=== PATIENT | male | born 1955 | race Caucasian/White ===

== ENCOUNTER 2016-12-27 22:09 | Emergency (ER) | payer OTHER | END 2016-12-28 00:59 | disposition home or self-care (01) | DX: I48.91 Unspecified atrial fibrillation (principal); I45.6 Pre-excitation syndrome; Z98.61 Coronary angioplasty status; I10 Essential (primary) hypertension; E03.9 Hypothyroidism, unspecified ==

== ENCOUNTER 2020-10-18 08:08 | Day surgery (SDC) | payer MEDICARE, OTHER ==
[2020-10-18] MEDS ORDERED: LACTATED RINGERS 1,000 ML IV ONE ×2 (08:47→10:40)
[2020-10-18] MEDS ORDERED: fentaNYL 250 MCG/5 ML VIAL ONE (09:14)
[2020-10-18] MEDS ORDERED: MIDAZOLAM 2 MG/2 ML VIAL ONE ×2 (09:14→09:29)
[2020-10-18] MEDS ORDERED: LACTATED RINGERS 600 ML IV ONE (09:47)
[2020-10-18 10:39] VITALS: BP 120/70
== END 2020-10-18 08:09 | disposition home or self-care (01) ==
LOC: SDS 08:08
PROVIDERS: ATTEND Surgery
PROC: 0DBL8ZX Excision of Transverse Colon, Via Natural or Artificial Opening Endoscopic, Diagnostic (ICD-10-PCS; principal; 2020-10-18 09:15)
DX: Z12.11 Encounter for screening for malignant neoplasm of colon (principal); K57.30 Diverticulosis of large intestine without perforation or abscess without bleeding; K63.5 Polyp of colon; I10 Essential (primary) hypertension; I25.10 Atherosclerotic heart disease of native coronary artery without angina pectoris; Z95.1 Presence of aortocoronary bypass graft; E66.9 Obesity, unspecified; Z68.34 Body mass index [BMI] 34.0-34.9, adult
CPT/HCPCS: 45380; J3010; J7120

== ENCOUNTER 2021-04-08 17:56 | Outpatient (CLI) | payer MEDICARE, OTHER | END 2021-04-08 17:57 | disposition critical access hospital (66) | LOC: EMS 17:56 | DX: R10.9 Unspecified abdominal pain (principal) | CPT/HCPCS: A0425; A0427 ==

== ENCOUNTER 2021-04-08 18:15 | Emergency (ER) | payer MEDICARE, OTHER ==
--- NOTE | 2021-04-08 18:55 | ED Physician Documentation ---
PD HPI ABD PAIN - Stated complaint Stated Complaint: ABD PAIN - Chief complaint Chief Complaint: Cardiac - History obtained from History obtained from: Patient - History of Present Illness Timing - onset: How many hours ago (2) Timing - duration: Hours (2) Timing - details: Abrupt onset Pain level max: 10 Pain level now: 5 Quality: Aching, Sharp, Stabbing, Pain Radiation: No: Chest, , Lower back, Left flank, Left shoulder, Right flank, Right shoulder, Upper back Improved by: Meds Worsened by: Moving, Palpation Associated symptoms: No: Fever, Nausea, Vomiting, Hematemesis, Diarrhea, Constipation, Melena, Hematochezia, Dysuria, Hematuria, Chest pain, Dizzy, Near syncope / syncope, Loss of appetite, Weight loss, Testicular pain Similar symptoms before: Has not had sx before Recently seen: Not recently seen - Additional information Additional information: 65-year-old male presents to the emergency department with abdominal pain. He states that it started around 2 hours ago. Abrupt onset while he was sitting in a chair at home. He states that it is epigastric. Took Joselin-Whiting without relief. Feels better after fentanyl with EMS. Describes it as a sharp stabbing pain in the epigastrium. Nonradiating. Worse with movement and palpation. Better with fentanyl. Patient states he usually has 1-2 alcoholic drinks a week. Had 8-10 drinks this weekend over 06 April. Review of Systems Ten Systems: 10 systems reviewed and negative Constitutional: denies: Fever, Chills Ears: denies: Ear pain Nose: denies: Rhinorrhea / runny nose, Congestion Throat: denies: Sore throat Cardiac: denies: Chest pain / pressure Respiratory: denies: Cough GI: denies: Hematemesis, Bloody / black stool : denies: Dysuria, Frequency, Hesitancy Skin: denies: Rash Musculoskeletal: denies: Neck pain, Back pain Neurologic: denies: Headache PD PAST MEDICAL HISTORY - Past Medical History Cardiovascular: Hypertension, High cholesterol, Coronary artery disease Respiratory: None Endocrine/Autoimmune: HyPOthyroidism GI: GERD : None, Nocturia HEENT: None Psych: None, Schizophrenia Musculoskeletal: Osteoarthritis Derm: None - Past Surgical History Past Surgical History: Yes Cardiovascular: CABG HEENT: Tonsil/Adenoidectomy - Present Medications Home Medications: Ambulatory Orders Medication Instructions Recorded Confirmed Levothyroxine Sodium 1 tab PO DAILY 12/27/16 10/17/20 Metoprolol Tartrate 1 tab PO BID 12/27/16 10/18/20 Simvastatin 1 tab PO DAILY 12/27/16 10/17/20 Doxazosin [Cardura] 2 mg PO DAILY 10/17/20 10/17/20 Losartan [Cozaar] 25 mg PO BID 10/17/20 10/17/20 Omeprazole 20 mg PO DAILY 10/17/20 10/17/20 Zolpidem [Ambien] 12.5 mg PO HS 10/17/20 10/18/20 Aspirin [Aspirin EC] 81 mg PO DAILY 10/18/20 10/18/20 HYDROcod/ACETAM 5/325 [[place] 5/325] 1 - 2 ea PO Q6H PRN #14 tablet 04/08/21 Omeprazole [PriLOSEC] 20 mg PO BID #60 04/08/21 Sucralfate [Carafate] 1 gm PO ACHS #60 tablet 04/08/21 - Allergies Allergies/Adverse Reactions: Allergies Allergy/AdvReac Type Severity Reaction Status Date / Time No Known Drug Allergies Allergy Verified 04/08/21 18:47 - Social History Does the pt smoke?: No Smoking Status: Never smoker Does the pt drink ETOH?: Yes Does the pt have substance abuse?: No - Immunizations Immunizations are current?: No - POLST Patient has POLST: No PD ED PE NORMAL - Vitals Vital signs reviewed: Yes - General General: Alert and oriented X 3, No acute distress, Well developed/nourished - HEENT HEENT: PERRL, Moist mucous membranes - Neck Neck: Supple, no meningeal sign - Cardiac Cardiac: RRR - Respiratory Respiratory: No respiratory distress, Clear bilaterally - Abdomen Abdomen: Soft, Non tender, Non distended, Other (Tender palpation epigastric without peritoneal signs.) - Derm Derm: Warm and dry - Extremities Extremities: No edema, No calf tenderness / cord - Neuro Neuro: Alert and oriented X 3 - Psych Psych: Normal mood, Normal affect Results - Vitals Vitals: Vital Signs - 24 hr 04/08/21 04/08/21 04/08/21 18:41 20:19 22:12 Temperature 36.6 C Heart Rate 66 58 L 63 Respiratory 14 14 16 Rate Blood Pressure 174/89 H 179/93 H 158/85 H O2 Saturation 98 98 98 Oxygen O2 Source Room air - Labs Labs: Laboratory Tests 04/08/21 04/08/21 04/08/21 18:52 18:52 19:41 WBC 7.7 RBC 5.31 Hgb 14.6 Hct 44.9 MCV 84.6 MCH 27.5 MCHC 32.5 RDW 13.1 Plt Count 216 MPV 10.5 Neut # (Auto) 5.2 Lymph # (Auto) 1.5 [place] # (Auto) 0.8 Eos # (Auto) 0.2 Baso # (Auto) 0.0 Absolute Nucleated RBC 0.00 Nucleated RBC % 0.0 Sodium 136 Potassium 3.6 Chloride 105 Carbon Dioxide 23 Anion Gap 8.0 BUN 22 H Creatinine 1.0 Estimated GFR (MDRD) 75 L Glucose 131 H Calcium 8.8 Total Bilirubin 1.6 H AST 68 H ALT 52 Alkaline Phosphatase 73 Total Protein 6.4 L Albumin 3.9 Globulin 2.5 Albumin/Globulin Ratio 1.6 Lipase 20 L Urine Color YELLOW Urine Clarity CLEAR Urine pH 7.5 Ur Specific [place] 1.020 Urine Protein NEGATIVE Urine Glucose (UA) NEGATIVE Urine Ketones TRACE Urine Occult Blood NEGATIVE Urine Nitrite NEGATIVE Urine Bilirubin NEGATIVE Urine Urobilinogen 1 (NORMAL) Ur Leukocyte Esterase NEGATIVE Ur Microscopic Review NOT INDICATED Urine Culture Comments NOT INDICATED - Rads (name of study) CT abd/pelvis Radiology: Prelim report reviewed, EMP read contemporaneously, See rad report PD MEDICAL DECISION MAKING - ED course Complexity details: reviewed results, re-evaluated patient, considered differential, d/w patient ED course: Patient is a 65-year-old male With epigastric abdominal pain. Appears to have duodenitis and gastritis on CT scan. Patient is well-appearing, nontoxic. Afebrile. Tolerating p.o. without difficulty. No evidence of pancreatitis. No evidence of gallbladder disease. Pain well controlled in the emergency department. Will restart his omeprazole to twice a day. We will add Carafate as well. Counseled regarding dietary changes. Patient counseled regarding signs and symptoms for which I believe and urgent re-evaluation would be necessary. Patient with good understanding of and agreement to plan and is comfortable going home at this time This document was made in part using voice recognition software. While efforts are made to proofread this document, sound alike and grammatical errors may occur. IMPRESSION: 1. Suggestion of mild circumferential thickening of the distal pylorus and proximal duodenum. No substantial inflammatory stranding. Findings may be related to incomplete distention. However, gastritis versus duodenitis may have a similar appearance. No evidence for perforation. 2. Colonic diverticulosis without acute diverticulitis. 3. Incompletely characterized 1.3 cm posterior left renal cortical hypodensity. This likely represents a renal cyst. Consider further evaluation with outpatient ultrasound to further characterize. 4. Atherosclerosis. Departure - Departure Disposition: Home, Self Care Clinical Impression: Gastritis and duodenitis Condition: Good Instructions: ED Gastritis Follow-Up: Janie Butts MD [Primary Care Provider] - Within 1 week Prescriptions: Sucralfate [Carafate] 1 gm PO ACHS #60 tablet HYDROcod/ACETAM 5/325 [[place] 5/325] 1 - 2 ea PO Q6H PRN #14 tablet PRN Reason: Pain Omeprazole [PriLOSEC] 20 mg PO BID #60 Comments: Follow-up with your doctor for further care. Return if you worsen. We will start you on twice a day omeprazole. Avoid fried foods, fatty foods, spicy foods, caffeine, alcohol. I am prescribing a short course of narcotic pain medication for you. These are potentially dangerous and addictive medications that should be used carefully. These medications may constipate you. Take an uytk-bei-[id number] stool softener (docusate) twice daily with plenty of water while taking these medications. If you go 24 hours without a bowel movement, take [id number] miralax, per package instructions. Do not drink or drive while taking these medications. If you received narcotic or sedating medications while in the emergency department, do not drive for 24 hours. Store this medication in a safe, secure place and out of reach of children. It is a violation of federal law to give or sell this medication to another person or to use in a manner other than prescribed. The ED will not refill narcotic prescriptions, including prescriptions lost or stolen. To dispose of unwanted medications: 1. [facility] at [address] in [place] has a medication drop box. They accept prescription medications (in pill form) Wednesday through Wednesday 9:00 a.m. to 5:00 p.m. 2. [facility] accepts prescription medications (in pill form only) for disposal year round. Call for more information. 3. Contact the [facility] for the next [facility] sponsored prescription drug collection event. , [phone], or [phone]; Discharge Date/Time: 04/08/21 22:57
[2021-04-08 18:57] LABS: BASOPHILS % (AUTO) 0.3 %; EOSINOPHILS # (AUTO) 0.2 10^3/uL (0.0-0.7); EOSINOPHILS % (AUTO) 2.1 %; HCT - HEMATOCRIT 44.9 % (42.0-52.0); HGB - HEMOGLOBIN 14.6 g/dL (14.0-18.0); LYMPHOCYTES # (AUTO) 1.5 10^3/uL (1.5-3.5); LYMPHOCYTES % (AUTO) 19.8 %; MEAN CORPUSCULAR HEMOGLOBIN 27.5 pg (27.0-31.0); MEAN CORPUSCULAR HGB CONC 32.5 g/dL (32.0-36.0); MEAN CORPUSCULAR VOLUME 84.6 fL (80.0-94.0); MEAN PLATELET VOLUME 10.5 fL (7.4-11.4); MONOCYTES # (AUTO) 0.8 10^3/uL (0.0-1.0); NEUTROPHILS # (AUTO) 5.2 10^3/uL (1.5-6.6); NEUTROPHILS % (AUTO) 67.4 %; PLT - PLATELET COUNT 216 10^3/uL (130-450); RED BLOOD COUNT 5.31 10^6/uL (4.70-6.10); RED CELL DISTRIBUTION WIDTH 13.1 % (12.0-15.0); WHITE BLOOD COUNT 7.7 x10^3/uL (4.8-10.8)
[2021-04-08 19:10] LABS: ALBUMIN 3.9 g/dL (3.2-5.5); ALBUMIN/GLOBULIN RATIO 1.6 (1.0-2.2); BILIRUBIN,TOTAL 1.6 mg/dL (0.2-1.0); CALCIUM 8.8 mg/dL (8.5-10.3); POTASSIUM 3.6 mmol/L (3.5-5.0); TOTAL PROTEIN 6.4 g/dL (6.7-8.2)
[2021-04-08 19:48] LABS: BILIRUBIN,URINE NEGATIVE (NEGATIVE); GLUCOSE, URINE (UA) NEGATIVE (NEGATIVE); KETONES,URINE (UA) TRACE mg/dL (NEGATIVE); LEUKOCYTE ESTERASE, URINE NEGATIVE (NEGATIVE); NITRITE,URINE NEGATIVE (NEGATIVE); OCCULT BLOOD,URINE NEGATIVE (NEGATIVE); PH,URINE 7.5 PH (5.0-7.5); PROTEIN,URINE NEGATIVE (NEGATIVE); UROBILINOGEN,URINE 1 (NORMAL) E.U./dL (NORMAL)
[2021-04-08] MEDS ORDERED: fentaNYL 100 MCG/2 ML VIAL IVP STA (19:51)
[2021-04-08 19:54] LABS: CLARITY,URINE CLEAR (CLEAR)
[2021-04-08] MEDS ORDERED: IOVERSOL 320 100 ML VIAL IVP ONE ×2 (20:48→22:54)
--- NOTE | 2021-04-08 21:36 | CT Report ---
PROCEDURE: Abdomen/Pelvis W INDICATIONS: epigastric abd pain CONTRAST: IV CONTRAST: Optiray 320 ml: 100 PO CONTRAST: *NO PO CONTRAST TECHNIQUE: After the administration of weight appropriate dose of intravenous contrast, 5 mm thick sections acqu ired from the diaphragms to the symphysis. 5 mm thick coronal and sagittal reformats were acquired. For radiation dose reduction, the following was used: automated exposure control, adjustment of mA and/or kV according to patient size. COMPARISON: None. FINDINGS: Image quality: Excellent. ABDOMEN: Lung bases: Bibasilar atelectasis. A few scattered calcified pulmonary granulomas compatible with jhonathan or granulomatous disease. Suggestion of mild subpleural scarring versus sequela of chronic interstiti al lung disease. Heart size is normal. Solid organs: Liver and spleen are normal in size and enhancement. Gallbladder is mildly distended. No pericholecystic inflammatory stranding. Biliary system is non dilated. Pancreas enhances normal ly. No adrenal nodules. Kidneys demonstrate normal size and enhancement, without hydronephrosis. I ncompletely characterized 1.3 cm posterior left renal cortical hypodensity. This likely represents a cyst. Peritoneum and bowel: There is mild circumferential wall thickening of the pylorus and proximal duod enum. No significant stranding. Bowel loops demonstrate normal wall thickness and caliber. No free f luid or air. Scattered colonic diverticulosis without evidence for acute diverticulitis. Nodes and vessels: No retroperitoneal or mesenteric adenopathy by size criteria. Aorta and inferior vena cava are normal in size. Atherosclerotic calcifications are present in the abdominal aorta wit hout aneurysmal dilatation. Miscellaneous: No ventral hernias. PELVIS: Genitourinary: Bladder wall thickness is normal. Miscellaneous: No inguinal hernias or adenopathy. Bones: No suspicious bony lesions. No acute vertebral body compression fractures. IMPRESSION: 1. Suggestion of mild circumferential thickening of the distal pylorus and proximal duodenum. No subs tantial inflammatory stranding. Findings may be related to incomplete distention. However, gastritis versus duodenitis may have a similar appearance. No evidence for perforation. 2. Colonic diverticulosis without acute diverticulitis. 3. Incompletely characterized 1.3 cm posterior left renal cortical hypodensity. This likely represent s a renal cyst. Consider further evaluation with outpatient ultrasound to further characterize. 4. Atherosclerosis. Reviewed by: Benji Parson MD on 04/08/2021 9:35 PM PDT Approved by: Benji Parson MD on 04/08/2021 9:35 PM PDT Station ID: [id number]
[2021-04-08 22:12] VITALS: BP 158/85
== END 2021-04-08 22:57 | disposition home or self-care (01) ==
LOC: EDUNIT# → ED 18:15 → SUPCPDRO 18:15 → ED 22:57
DX: K29.70 Gastritis, unspecified, without bleeding (principal); K29.80 Duodenitis without bleeding; I10 Essential (primary) hypertension; Z79.82 Long term (current) use of aspirin
CPT/HCPCS: 36415; 74177; 80053; 81003; 83690; 85025; 96374; 99284; Q9967; 81001; 87086

== ENCOUNTER 2021-04-13 19:06 | Outpatient (CLI) | payer MEDICARE, OTHER | END 2021-04-13 19:07 | disposition critical access hospital (66) | LOC: EMS 19:06 | DX: R10.9 Unspecified abdominal pain (principal) | CPT/HCPCS: A0425; A0427 ==

== ENCOUNTER 2021-04-13 19:24 | Inpatient (IN) | payer MEDICARE, OTHER ==
[2021-04-13] MEDS ORDERED: HYDROmorphone 1 MG/ML CARPUJECT IVP STA ×3 (19:35→22:15)
[2021-04-13] MEDS ORDERED: LIDOCAINE VISCOUS 2% 15 ML UDC MM STA (19:36)
[2021-04-13] MEDS ORDERED: MAG HYDROX/AL HYDROX/SIMETH 30 ML UDC PO STA (19:36)
--- NOTE | 2021-04-13 19:37 | ED Physician Documentation ---
PD HPI ABD PAIN - Stated complaint Stated Complaint: ABD PAIN - Chief complaint Chief Complaint: Abd Pain - History obtained from History obtained from: Patient, EMS - Additional information Additional information: 65 yo male with hx Coronary bypass a few years ago presents with severe epigastric pain starting at 430 today. He was seen for the same pain 4 days ago. This is similar. Pain level was the same then. He really has not had pain since until today. It is worse with eating. Labs at that time, 4 days ago were notable for a bilirubin of 1.6, AST of 68, ALT normal. CBC normal. Urine normal. He had a CT of the belly with IV contrast showing distal pyloric and proximal proximal duodenum inflammation, could be gastritis versus duodenitis or incomplete distention. Atherosclerosis, diverticulosis. Pain does not radiate including the back. He is not nauseous. Decreased bowel movements but he has not been eating or drinking as much this week as usual. He has filled and taken the prescriptions he was prescribed the other day. This included sucralfate, hydrocodone, and omeprazole. Received 150 mcg of fentanyl in route with improvement but it is getting worse again. Review of Systems Ten Systems: 10 systems reviewed and negative Constitutional: reports: Reviewed and negative Nose: reports: Reviewed and negative Throat: reports: Reviewed and negative Cardiac: reports: Reviewed and negative PD PAST MEDICAL HISTORY - Past Medical History Cardiovascular: Hypertension, High cholesterol, Coronary artery disease Respiratory: None Endocrine/Autoimmune: HyPOthyroidism GI: GERD : None, Nocturia HEENT: None Psych: None, Schizophrenia Musculoskeletal: Osteoarthritis Derm: None - Past Surgical History Past Surgical History: Yes Cardiovascular: CABG HEENT: Tonsil/Adenoidectomy - Present Medications Home Medications: Ambulatory Orders Medication Instructions Recorded Confirmed Levothyroxine Sodium 1 tab PO DAILY 12/27/16 10/17/20 Metoprolol Tartrate 1 tab PO BID 12/27/16 10/18/20 Simvastatin 1 tab PO DAILY 12/27/16 10/17/20 Doxazosin [Cardura] 2 mg PO DAILY 10/17/20 10/17/20 Losartan [Cozaar] 25 mg PO BID 10/17/20 10/17/20 Omeprazole 20 mg PO DAILY 10/17/20 10/17/20 Zolpidem [Ambien] 12.5 mg PO HS 10/17/20 10/18/20 Aspirin [Aspirin EC] 81 mg PO DAILY 10/18/20 10/18/20 HYDROcod/ACETAM 5/325 [[place] 5/325] 1 - 2 ea PO Q6H PRN #14 tablet 04/08/21 Omeprazole [PriLOSEC] 20 mg PO BID #60 04/08/21 Sucralfate [Carafate] 1 gm PO ACHS #60 tablet 04/08/21 - Allergies Allergies/Adverse Reactions: Allergies Allergy/AdvReac Type Severity Reaction Status Date / Time No Known Drug Allergies Allergy Verified 04/13/21 19:33 - Social History Does the pt smoke?: No Smoking Status: Never smoker Does the pt drink ETOH?: Yes Does the pt have substance abuse?: No - Immunizations Immunizations are current?: No - POLST Patient has POLST: No PD ED PE NORMAL - Vitals Vital signs reviewed: Yes - General General: Alert and oriented X 3 - HEENT HEENT: PERRL, EOMI - Neck Neck: Supple, no meningeal sign, No bony TTP - Cardiac Cardiac: RRR, No murmur - Respiratory Respiratory: No respiratory distress, Clear bilaterally - Abdomen Abdomen: Other (He appears uncomfortable, is profoundly tender in the upper abdomen without surgical signs.) - Back Back: No CVA TTP, No spinal TTP - Derm Derm: Normal color, Warm and dry - Extremities Extremities: No edema, No calf tenderness / cord - Neuro Neuro: Alert and oriented X 3, Normal speech Results - Vitals Vitals: Vital Signs - 24 hr 04/13/21 04/13/21 04/13/21 19:22 21:00 23:00 Temperature 35.7 C L Heart Rate 65 76 73 Respiratory 21 18 14 Rate Blood Pressure 130/74 132/77 H 143/80 H O2 Saturation 99 89 L 96 04/14/21 00:53 Temperature 36.6 C Heart Rate 79 Respiratory 23 Rate Blood Pressure 146/90 H O2 Saturation 95 Oxygen O2 Source Room air - Labs Labs: Laboratory Tests 04/13/21 04/13/21 04/13/21 19:41 19:41 23:25 WBC 15.4 H RBC 5.42 Hgb 15.2 Hct 45.5 MCV 83.9 MCH 28.0 MCHC 33.4 RDW 13.2 Plt Count 220 MPV 10.5 Neut # (Auto) 12.5 H Lymph # (Auto) 1.9 [place] # (Auto) 0.8 Eos # (Auto) 0.1 Baso # (Auto) 0.0 Absolute Nucleated RBC 0.00 Nucleated RBC % 0.0 Sodium 138 Potassium 3.1 L Chloride 103 Carbon Dioxide 21 Anion Gap 14.0 H BUN 12 Creatinine 1.0 Estimated GFR (MDRD) 75 L Glucose 176 H Calcium 9.0 Total Bilirubin 3.0 H AST 195 H ALT 206 H Alkaline Phosphatase 212 H Total Protein 6.8 Albumin 4.0 Globulin 2.8 Albumin/Globulin Ratio 1.4 Lipase 20 L Urine Color YELLOW Urine Clarity CLEAR Urine pH 5.5 Ur Specific [place] <=1.005 Urine Protein NEGATIVE Urine Glucose (UA) NEGATIVE Urine Ketones 40 H Urine Occult Blood NEGATIVE Urine Nitrite NEGATIVE Urine Bilirubin MODERATE H Urine Urobilinogen >=8.0 H Ur Leukocyte Esterase NEGATIVE Ur Microscopic Review NOT INDICATED Urine Culture Comments NOT INDICATED Nasal Adenovirus (PCR) Nasal B. parapertussis DNA (PCR) Nasal Coronavir 229E PCR Nasal Coronavir HKU1 PCR Nasal Coronavir NL63 PCR Nasal Coronavir OC43 PCR Nasal Enterovir/Rhinovir PCR Nasal Influenza B PCR Nasal Influenza A PCR Nasal Parainfluen 1 PCR Nasal Parainfluen 2 PCR Nasal Parainfluen 3 PCR Nasal Parainfluen 4 PCR Nasal RSV (PCR) Nasal B.pertussis DNA PCR Nasal C.pneumoniae (PCR) Angel Human Metapneumo PCR Nasal M.pneumoniae (PCR) Nasal SARS-CoV-2 (PCR) 04/14/21 00:58 WBC RBC Hgb Hct MCV MCH MCHC RDW Plt Count MPV Neut # (Auto) Lymph # (Auto) [place] # (Auto) Eos # (Auto) Baso # (Auto) Absolute Nucleated RBC Nucleated RBC % Sodium Potassium Chloride Carbon Dioxide Anion Gap BUN Creatinine Estimated GFR (MDRD) Glucose Calcium Total Bilirubin AST ALT Alkaline Phosphatase Total Protein Albumin Globulin Albumin/Globulin Ratio Lipase Urine Color Urine Clarity Urine pH Ur Specific [place] Urine Protein Urine Glucose (UA) Urine Ketones Urine Occult Blood Urine Nitrite Urine Bilirubin Urine Urobilinogen Ur Leukocyte Esterase Ur Microscopic Review Urine Culture Comments Nasal Adenovirus (PCR) NOT DETECTED Nasal B. parapertussis DNA (PCR) NOT DETECTED Nasal Coronavir 229E PCR NOT DETECTED Nasal Coronavir HKU1 PCR NOT DETECTED Nasal Coronavir NL63 PCR NOT DETECTED Nasal Coronavir OC43 PCR NOT DETECTED Nasal Enterovir/Rhinovir PCR DETECTED A Nasal Influenza B PCR NOT DETECTED Nasal Influenza A PCR NOT DETECTED Nasal Parainfluen 1 PCR NOT DETECTED Nasal Parainfluen 2 PCR NOT DETECTED Nasal Parainfluen 3 PCR NOT DETECTED Nasal Parainfluen 4 PCR NOT DETECTED Nasal RSV (PCR) NOT DETECTED Nasal B.pertussis DNA PCR NOT DETECTED Nasal C.pneumoniae (PCR) NOT DETECTED Angel Human Metapneumo PCR NOT DETECTED Nasal M.pneumoniae (PCR) NOT DETECTED Nasal SARS-CoV-2 (PCR) NOT DETECTED PD MEDICAL DECISION MAKING - ED course ED course: 65-year-old gentleman "bounces back," with severe epigastric pain. Previous studies reviewed.. Prior CT imaging suggestive of duodenal inflammation and sent home on a PPI and sucralfate. He was pain-free for a few days but now sudden onset pain again starting at 430 today. Tender in the upper abdomen. Labs reviewed, his white count has gone from 7.7-15.4. His bilirubin has gone from 1.6-3, AST from 68-1 95, ALT from 52-2 06, alkaline phosphatase from 73- 212. These changes are suggestive of a progressive biliary obstruction. CT tonight shows: 1. Distended stomach. There is mild gastric antral thickening. This findings suggest gastric outlet obstruction. Recommend clinical correlation. If clinically indicated, EGD may be helpful. 2. Diverticulosis without acute diverticulitis. 3. A 1.5 cm low-density cortical nodule in the left kidney. Statistically, it is most likely a cyst. Ultrasound be helpful for further characterization. 4. Bilateral subpleural septal thickening and pulmonary fibrosis in visualized lower lobes. Care to Dr. Coppola at shift change, I have ordered an ultrasound to better evaluate the bile ducts. Departure - Departure Disposition: [address] [facility] DC/Xfer Clinical Impression: Cholangitis due to bile duct calculus with obstruction Condition: Serious Discharge Date/Time: 04/14/21 03:55
[2021-04-13] MEDS ORDERED: IOVERSOL 320 100 ML VIAL IVP ONE ×2 (19:43→21:42)
[2021-04-13] MEDS ORDERED: IOVERSOL 320 50 ML VIAL ONE (19:43)
[2021-04-13 19:48] LABS: BASOPHILS % (AUTO) 0.2 %; EOSINOPHILS # (AUTO) 0.1 10^3/uL (0.0-0.7); EOSINOPHILS % (AUTO) 0.8 %; HCT - HEMATOCRIT 45.5 % (42.0-52.0); HGB - HEMOGLOBIN 15.2 g/dL (14.0-18.0); LYMPHOCYTES # (AUTO) 1.9 10^3/uL (1.5-3.5); LYMPHOCYTES % (AUTO) 12.3 %; MEAN CORPUSCULAR HGB CONC 33.4 g/dL (32.0-36.0); MEAN CORPUSCULAR VOLUME 83.9 fL (80.0-94.0); MEAN PLATELET VOLUME 10.5 fL (7.4-11.4); MONOCYTES # (AUTO) 0.8 10^3/uL (0.0-1.0); MONOCYTES % (AUTO) 5.4 %; NEUTROPHILS # (AUTO) 12.5 10^3/uL (1.5-6.6); PLT - PLATELET COUNT 220 10^3/uL (130-450); RED BLOOD COUNT 5.42 10^6/uL (4.70-6.10); RED CELL DISTRIBUTION WIDTH 13.2 % (12.0-15.0); WHITE BLOOD COUNT 15.4 x10^3/uL (4.8-10.8)
[2021-04-13 20:01] LABS: ALBUMIN/GLOBULIN RATIO 1.4 (1.0-2.2); POTASSIUM 3.1 mmol/L (3.5-5.0); TOTAL PROTEIN 6.8 g/dL (6.7-8.2)
[2021-04-13] MEDS ORDERED: IOPAMIDOL-300 50 ML VIAL PO ONE (21:43)
--- NOTE | 2021-04-13 22:13 | CT Report ---
PROCEDURE: Abdomen/Pelvis W INDICATIONS: abd pain, iv and po CONTRAST: IV CONTRAST: Optiray 320 ml: 100 PO CONTRAST: Optiray 320 ml50 TECHNIQUE: After the administration of intravenous contrast, 5 mm thick sections acquired from the diaphragms to the symphysis. 5 mm thick coronal and sagittal reformats were acquired. For radiation dose reducti on, the following was used: automated exposure control, adjustment of mA and/or kV according to david ent size. COMPARISON: CT abdomen and pelvis with contrast, 04/08/2021. FINDINGS: Image quality: Excellent. ABDOMEN: Lung bases: Bilateral subpleural septal thickening and pulmonary fibrosis in visualized lower lobes. Heart size is normal. Moderate coronary artery calcification. Solid organs: Liver and spleen are normal in size and enhancement. Gallbladder is mildly distended. No gallstones. Biliary system is non dilated. Pancreas enhances normally. No adrenal nodules. Ki dneys demonstrate normal size and enhancement, without hydronephrosis. There is a 1.5 cm cortical no dule in the posterior cortex of the left kidney. Peritoneum and bowel: Stomach is distended. There is mild gastric antral thickening. Bowel loops dem onstrate normal wall thickness and caliber. There are scattered colonic diverticula. No CT findings to suggest acute diverticulitis. No free fluid or air. Nodes and vessels: No retroperitoneal or mesenteric adenopathy by size criteria. Aorta and inferior vena cava are normal in size. Miscellaneous: No ventral hernias. PELVIS: Genitourinary: Bladder wall thickness is normal. Miscellaneous: No inguinal hernias or adenopathy. Bones: No suspicious bony lesions. No vertebral body compression fractures. Degenerative changes a re present in the lower lumbar spine. IMPRESSION: 1. Distended stomach. There is mild gastric antral thickening. This findings suggest gastric outlet o bstruction. Recommend clinical correlation. If clinically indicated, EGD may be helpful. 2. Diverticulosis without acute diverticulitis. 3. A 1.5 cm low-density cortical nodule in the left kidney. Statistically, it is most likely a cyst. Ultrasound be helpful for further characterization. 4. Bilateral subpleural septal thickening and pulmonary fibrosis in visualized lower lobes. Reviewed by: Jose David Stafford MD on 04/13/2021 10:12 PM PDT Approved by: Jose David Stafford MD on 04/13/2021 10:12 PM PDT Station ID: [id number]
--- NOTE | 2021-04-13 23:34 | Ultrasound Report ---
PROCEDURE: Abdomen Limited INDICATIONS: elev liver enzymes, ?choledocholithiasis TECHNIQUE: Real-time focused scanning was performed of the abdomen, with image documentation. COMPARISON: Abdomen pelvis CT performed earlier in the day, 04/13/2021. FINDINGS: The liver demonstrates prominent size. The liver demonstrates moderately increased echoge nicity, which limits ultrasound sensitivity for detection of masses. The gallbladder is somewhat distended. The gallbladder wall is minimally thickened at 4 mm. No stones can be seen. No specific pericholecystic fluid. The sonographic Swain's is negative. The common bile duct is mildly dilated at 13 mm. The visualized right kidney is unremarkable. The pancreas is not well seen. This study is limited by body habitus and bowel gas. IMPRESSION: Biliary ductal dilatation is seen, measuring 13 mm. If clinically appropriate, please consider a dedicated MRCP for further evaluation (assuming that the re is no contraindication). Prominent gallbladder with minimal gallbladder wall thickening. No additional sonographic signs of ch olecystitis are seen. Increased liver echogenicity is seen. This is nonspecific, yet it is most commonly attributed to fatt y infiltration. Reviewed by: Vega Kiser MD on 04/13/2021 10:33 PM KALIA Approved by: Vega Kiser MD on 04/13/2021 10:33 PM KALIA Station ID: [id number]
[2021-04-13 23:38] LABS: GLUCOSE, URINE (UA) NEGATIVE (NEGATIVE); KETONES,URINE (UA) 40 mg/dL (NEGATIVE); LEUKOCYTE ESTERASE, URINE NEGATIVE (NEGATIVE); NITRITE,URINE NEGATIVE (NEGATIVE); OCCULT BLOOD,URINE NEGATIVE (NEGATIVE); PH,URINE 5.5 PH (5.0-7.5); PROTEIN,URINE NEGATIVE (NEGATIVE); UROBILINOGEN,URINE >=8.0 E.U./dL (NORMAL)
[2021-04-13 23:43] LABS: BILIRUBIN,URINE MODERATE (NEGATIVE); CLARITY,URINE CLEAR (CLEAR); ICTOTEST,URINE POSITIVE
[2021-04-14] MEDS ORDERED: HYDROmorphone 1 MG/ML CARPUJECT IVP STA ×2 (00:19→02:47)
--- NOTE | 2021-04-14 00:37 | ED Physician Documentation ---
ED Addendum - Addendum Addendum: 04/14/21 00:33 65-year-old male with a history of coronary artery disease has developed acute epigastric pain over the last 5 days and he is an exacerbation of the pain today and appears to have a common duct stone. The patient was signed out to me by Dr. Mares with the ultrasound pending. The ultrasound demonstrates evidence of obstruction and the specific stone was not visible secondary to gas. We reached out to [facility] where the patient has been referred for endoscopy and they do not have a physician addiction specialist the does ERCP tonight and they do not have beds. We called our friends at [facility] and they do have capability of ERCP but they do not have a bed. We have been placed on their waiting list. I talked to our surgeon here Dr. Aldridge who agrees the patient needs to be in the hospital and needs to have an MRCP and will likely need transfer for ERCP. He has agreed to admit the patient here for MRCP in the am and treatment of cholangitis. 04/14/21 00:52 Results of U/S: Impression: Biliary ductal dilation is seen, measuring 13 mm. If clinically appropriate, please consider dedicated MRCP for further evaluation (assuming that there is no contraindication). Prominent gallbladder with minimal gallbladder wall thickening. No additional sonographic sign of cholecystitis is seen. Increased liver echogenicity is seen. This is nonspecific, yet is most commonly attributed to fatty infiltration.
[2021-04-14 01:58] LABS: B. PARAPERTUSSIS- RESP PCR PAN NOT DETECTED; B. PERTUSSIS- RESP PCR PANEL NOT DETECTED; C. PNEUMONIAE- RESP PCR PANEL NOT DETECTED; CORONAVIRUS 229E-RESP PCR NOT DETECTED; CORONAVIRUS HKU1-RESP PCR NOT DETECTED; CORONAVIRUS NL63-RESP PCR NOT DETECTED; CORONAVIRUS OC43-RESP PCR NOT DETECTED; HUMAN METAPNEUMOVIRUS NOT DETECTED; INFLUENZA A- RESP PCR PANEL NOT DETECTED; INFLUENZA B - RESP PCR PANEL NOT DETECTED; M. PNEUMONIAE- RESP PCR PANEL NOT DETECTED; PARAINFLUENZA VIRUS 1 NOT DETECTED; PARAINFLUENZA VIRUS 2 NOT DETECTED; PARAINFLUENZA VIRUS 3 NOT DETECTED; PARAINFLUENZA VIRUS 4 NOT DETECTED; RHINOVIRUS/ENTEROVIRUS DETECTED; RSV- RESP PCR PANEL NOT DETECTED; SARS-CoV-2 -RESP PCR PANEL NOT DETECTED
[2021-04-14] MEDS ORDERED: ACETAMINOPHEN 1,000 MG/100 ML 100 ML IV PRN (02:26)
[2021-04-14] MEDS ORDERED: ONDANSETRON 4 MG/2 ML VIAL IVP PRN (02:26)
[2021-04-14 02:47] LABS: BASOPHILS % (AUTO) 0.2 %; HCT - HEMATOCRIT 44.2 % (42.0-52.0); HGB - HEMOGLOBIN 14.8 g/dL (14.0-18.0); LYMPHOCYTES % (AUTO) 7.9 %; MEAN CORPUSCULAR HEMOGLOBIN 27.7 pg (27.0-31.0); MEAN CORPUSCULAR HGB CONC 33.5 g/dL (32.0-36.0); MEAN CORPUSCULAR VOLUME 82.6 fL (80.0-94.0); MEAN PLATELET VOLUME 10.5 fL (7.4-11.4); MONOCYTES # (AUTO) 1.1 10^3/uL (0.0-1.0); MONOCYTES % (AUTO) 8.7 %; NEUTROPHILS # (AUTO) 10.5 10^3/uL (1.5-6.6); PLT - PLATELET COUNT 211 10^3/uL (130-450); RED BLOOD COUNT 5.35 10^6/uL (4.70-6.10); RED CELL DISTRIBUTION WIDTH 13.1 % (12.0-15.0); WHITE BLOOD COUNT 12.6 x10^3/uL (4.8-10.8)
[2021-04-14 02:59] LABS: ALBUMIN 3.8 g/dL (3.2-5.5); ALBUMIN/GLOBULIN RATIO 1.3 (1.0-2.2); BILIRUBIN,TOTAL 4.6 mg/dL (0.2-1.0); CALCIUM 8.8 mg/dL (8.5-10.3); CREATININE 0.9 mg/dL (0.6-1.2); POTASSIUM 3.3 mmol/L (3.5-5.0); TOTAL PROTEIN 6.8 g/dL (6.7-8.2)
[2021-04-14] MEDS: HYDROmorphone 0.5 MG/0.5 ML SYRINGE IVP PRN ×7 (04:33→20:05)
[2021-04-14] MEDS: SODIUM CHLORIDE FLUSH 0.9% 10 ML SYRINGE IVP PRN (04:34)
[2021-04-14] MEDS: PIPERACILLIN/TAZOBACTAM 3.375 GM in SODIUM CHLORIDE 0.9% MINIBAG 100 ML IV SCH ×4 (04:34→22:29)
[2021-04-14] MEDS: D5NS W/20 MEQ KCL 1,000 ML IV SCH ×2 (04:34→17:43)
[2021-04-14] MEDS: PANTOPRAZOLE 40 MG VIAL IVP SCH (07:41)
[2021-04-14] MEDS: METOCLOPRAMIDE 10 MG/2 ML VIAL IVP SCH ×3 (07:41→19:48)
[2021-04-14] MEDS: methocarbamoL 500 MG TABLET PO SCH ×3 (07:41→19:48)
[2021-04-14] MEDS: LEVOTHYROXINE 100 MCG TABLET PO SCH (07:41)
[2021-04-14] MEDS ORDERED: GADOBUTROL 15 MMOL/15 ML VIAL ONE (08:41)
[2021-04-14] MEDS: LOSARTAN 50 MG TABLET PO SCH ×2 (08:42→22:29)
[2021-04-14] MEDS: DOXAZOSIN 1 MG TABLET PO SCH (08:43)
[2021-04-14] MEDS: ATORVASTATIN 10 MG TABLET PO SCH (08:43)
[2021-04-14] MEDS: METOPROLOL TARTRATE 25 MG TABLET PO SCH ×2 (08:43→22:29)
[2021-04-14] MEDS: SODIUM CHLORIDE FLUSH 0.9% 10 ML SYRINGE IVP SCH ×2 (08:44→17:43)
[2021-04-14] MEDS ORDERED: PANTOPRAZOLE 40 MG TABLET PO SCH (09:00)
[2021-04-14] MEDS ORDERED: ENOXAPARIN 40 MG/0.4 ML SYRINGE SUBQ SCH (09:00)
[2021-04-14] MEDS ORDERED: NON FORMULARY MED (Omeprazole [Prilosec] 20 MG Capsule) PO SCH (09:00)
--- NOTE | 2021-04-14 11:33 | PHARMACY PROGRESS NOTE ---
- Best Possible Medication History Admit Date and Time: 04/14/21 0226 Processed by: Pharmacy Medication History completed: Yes Patient Interview: Pt unable to participate Secondary Source(s): Pharmacy records, Insurance records As the person ultimately responsible for medication therapy, providers are able to order a medication from an existing home medication list in [facility] via the "Reconcile Routine" prior to Confirmation of that medication by patient support representative. Such practice is discouraged except when the physician, in their clinical judgment, deems that a medical need exists for a medication without regard to previous use.
--- NOTE | 2021-04-14 13:25 | MRI Report ---
PROCEDURE: MRCP W/WO INDICATIONS: choledocholithiasis CONTRAST: IV CONTRAST: Gadavist ml: 11 TECHNIQUE: Coronal ultra fast SE through the abdomen, axial 2-D spoiled GE in- and [id number], and breath-hold T2 FSE with fat saturation through the biliary system and pancreas. Oblique coronal and axial thin- slice ultra fast SE, radial thick-slab ultra fast SE centered on the extrahepatic bile ducts. Dynamic axial Marks during the administration of contrast; post-contrast coronal ultra fast GE or 2D spoiled GE with fat saturation from the hepatic dome to the iliac crests. COMPARISON: Abdominal ultrasound and CT abdomen and pelvis 04/13/2021. FINDINGS: Image quality: Good. Susceptibility artifact from median sternotomy. Pancreas and biliary system: Common hepatic duct measures 1.1 cm. Common bile duct measures 1 cm. Th e CBD tapers distally. No intraluminal filling defect is seen. Intrahepatic bile ducts are minimally prominent. Left intrahepatic bile duct measures 0.5 cm, (801/79). Gallbladder is prominent. No gallst ones seen. Pancreas is normal in morphology, without adjacent soft tissue edema. Pancreatic duct is normal in c aliber, without developmental anomalies. Other solid organs: Liver and spleen are normal in size. No suspicious focal enhancement. No adrenal nodules. Both kidneys are normal in size, without hydronephrosis. Small simple cysts in the kidneys . Nodes and vessels: No retroperitoneal or mesenteric adenopathy by size criteria. Small lower paraeso phageal lymph nodes. Aorta and inferior vena cava are normal in size. Bowel and peritoneum: Unenhanced bowel loops are normal in caliber. A few colonic diverticuli. No f ree fluid. Lung bases: No basal pleural effusions. Heart size is normal. Bones and soft tissues: No ventral hernias. Bone marrow is of normal overall signal. IMPRESSION: 1. No gallstones identified. 2. No biliary intraluminal filling defect demonstrated. 3. Mild biliary ductal dilatation. 4. The gallbladder is prominent. Reviewed by: Kenneth Childers MD on 04/14/2021 1:24 PM PDT Approved by: Kenneth Childers MD on 04/14/2021 1:24 PM PDT Station ID: [id number]
--- NOTE | 2021-04-14 15:35 | SURGERY HX AND PHYSICAL(T) ---
Surgical History & Physical - Chief Complaint/HPI Chief Complaint: Abdominal pain and jaundice History of Present Illness: 65-year-old male presenting for abdominal pain and jaundice. Patient evaluated last Wednesday and returns again yesterday with abdominal discomfort associated nausea.. No significant family history. Notable past surgical history to include none. Patient denies change in bowel function, denies bleeding per rectum, and also denies reflux associated symptoms. Patient does not use tobacco. Patient has a history of alcohol use but denies any associated abuse. Patient has appropriate exercise tolerance to 1 flight of stairs. No history of heart attack or stroke. Patient takes no systemic anticoagulation. Endoscopic history includes age-appropriate colonoscopy. - PMH/PSH/Social Hx Does the pt have a hx of MRSA?: No Neurological History: None Eyes, Ears, Nose, Throat: None Cardiovascular: Hypertension, High cholesterol, Coronary artery disease Respiratory: None Skin: None Endocrine/Autoimmune: HyPOthyroidism Gastrointestinal: GERD Urinary: None, Nocturia Musculoskeletal: Osteoarthritis Blood Disorders: None Psychiatric: None, Schizophrenia Orthopedic: Carpal Tunnel surgery Cardiothoracic: CABG Eyes Ears Nose Throat (EENT): Tonsil/Adenoidectomy Smoking Status: Never smoker Does the pt drink ETOH?: Yes Frequency: Occasional Does the pt have substance abuse?: No - Home Meds and Allergies Home Medications: Levothyroxine Sodium 150 mcg PO QDAC 12/27/16 Metoprolol Tartrate 50 mg PO BID 12/27/16 Simvastatin 20 mg PO QPM 12/27/16 Doxazosin [Cardura] 2 mg PO QPM 10/17/20 Aspirin [Aspirin EC] 81 mg PO DAILY 10/18/20 Losartan Potassium 12.5 mg PO BID 04/14/21 Zolpidem Tartrate [Ambien Cr] 12.5 mg PO QPM PRN 04/14/21 Allergies/Adverse Reactions: Allergies Allergy/AdvReac Type Severity Reaction Status Date / Time No Known Drug Allergies Allergy Verified 04/13/21 19:33 - Review of Systems Constitutional: Fatigue, Malaise Gastrointestinal: Nausea, Vomiting, Abdominal pain - Vital Signs Heart Rate: 81 Blood Pressure: 137/76 Temperature: 36.3 C Respiratory Rate: 20 O2 Saturation: 97 Weight (kg): 105.5 kg Height: 1.8 m - Physical Exam Comments/Other: General Appearance: positive: No acute distress Eyes Bilateral: positive: Normal inspection, Scleral icterus ENT: positive: ENT inspection nml Neck: positive: Nml inspection Respiratory: positive: Chest non-tender, No respiratory distress, Breath sounds nml. negative: Wheezes, Rales, Rhonchi Cardiovascular: positive: Regular rate & rhythm Abdomen: positive: Tenderness to palpation deeply in the epigastrium, Other. negative: Guarding, Rebound Extremities: positive: Non-tender, Full ROM, Nml appearance Neurologic/Psychiatric: positive: Oriented x3, CN's nml (2-12) - Patient Review Patient Review: Problems were reviewed with the patient during this visit. Medications were reviewed with the patient during this visit. Allergies were reviewed this patient during this visit. Pertinent Tests Reviewed: All pertitent test for this patient were reviewed. - Assessment & Plan Assessment and Plan: 65-year-old male who presents with signs and symptoms consistent with cholecystitis, with abdominal pain obstructive jaundice consistent with Choledocholithiasis. Although imaging is without any stones, we will proceed with MRCP to confirm. Would consider urgent referral for ERCP and return for cholecystectomy upon confirmation of diagnosis. (1) GI - IVF, bowel rest. GI ppx. Anticipate ileus. Opiate sparring analgesia. (2) SURGERY - consider cholecystectomy following ERCP; awaiting MRCP for confirmation of diagnosis. (3) Renal/Lytes - continue IVF. Renal indices within normal limits. (4) Respiratory - O2 as necessary. Continue IS. [Chest XR.] (5) Heme - Will continue with DVT ppx. [H/H stable]. (6) Cardiovascular - HD acceptable. (7) Neuro - Opiate sparring analgesia. Antispasmodics with Robaxin. Toradol. Neuropathic agents. (8) Infectious disease - continue antibiotics Impression CT abdomen pelvis: 1. Distended stomach. There is mild gastric antral thickening. This finding suggest gastric outlet obstruction. Recommend clinical correlation. If clinically indicated EGD may be helpful. 2. Diverticulosis without acute diverticulitis. 3. A 1.5 cm low-density cortical nodule in the left kidney. Statistically the most likely a cyst. Ultrasound could be helpful for further characterization. 4. Bilateral subpleural septal thickening and 5 pulmonary fibrosis is visualized lower lobes Ultrasound abdomen impression: 1. Biliary ductal dilatation seen measuring 13 mm 2. If clinically appropriate, please consider dedicated MRCP for further evaluation. 3. Prominent gallbladder with minimal gallbladder wall thickening. No additional sonographic signs of cholecystitis are seen. 4. Increased liver echogenicity. Nonspecific. Most commonly attributed to fatty infiltration.
[2021-04-14 15:47] LABS: BASOPHILS % (AUTO) 0.2 %; EOSINOPHILS # (AUTO) 0.1 10^3/uL (0.0-0.7); EOSINOPHILS % (AUTO) 0.4 %; LYMPHOCYTES # (AUTO) 0.7 10^3/uL (1.5-3.5); LYMPHOCYTES % (AUTO) 5.3 %; MEAN CORPUSCULAR HEMOGLOBIN 28.1 pg (27.0-31.0); MEAN CORPUSCULAR HGB CONC 33.3 g/dL (32.0-36.0); MEAN CORPUSCULAR VOLUME 84.2 fL (80.0-94.0); MEAN PLATELET VOLUME 10.1 fL (7.4-11.4); MONOCYTES # (AUTO) 1.4 10^3/uL (0.0-1.0); MONOCYTES % (AUTO) 10.7 %; NEUTROPHILS # (AUTO) 10.9 10^3/uL (1.5-6.6); NEUTROPHILS % (AUTO) 83.2 %; PLT - PLATELET COUNT 199 10^3/uL (130-450); RED BLOOD COUNT 4.99 10^6/uL (4.70-6.10); RED CELL DISTRIBUTION WIDTH 13.4 % (12.0-15.0); WHITE BLOOD COUNT 13.1 x10^3/uL (4.8-10.8)
[2021-04-14 16:07] LABS: ALBUMIN 3.2 g/dL (3.2-5.5); BILIRUBIN,TOTAL 5.9 mg/dL (0.2-1.0); CALCIUM 8.8 mg/dL (8.5-10.3); CREATININE 0.9 mg/dL (0.6-1.2); POTASSIUM 3.6 mmol/L (3.5-5.0); TOTAL PROTEIN 6.3 g/dL (6.7-8.2)
[2021-04-14] MEDS ORDERED: GADOBUTROL 15 MMOL/15 ML VIAL IVP ONE (17:41)
[2021-04-15] MEDS: METOCLOPRAMIDE 10 MG/2 ML VIAL IVP SCH ×5 (00:40→23:48)
[2021-04-15] MEDS: methocarbamoL 500 MG TABLET PO SCH ×5 (00:40→23:48)
[2021-04-15] MEDS: SODIUM CHLORIDE FLUSH 0.9% 10 ML SYRINGE IVP SCH ×4 (00:40→23:48)
[2021-04-15] MEDS: D5NS W/20 MEQ KCL 1,000 ML IV SCH ×4 (02:23→20:34)
[2021-04-15] MEDS: PIPERACILLIN/TAZOBACTAM 3.375 GM in SODIUM CHLORIDE 0.9% MINIBAG 100 ML IV SCH ×4 (03:20→19:19)
[2021-04-15 05:31] LABS: BASOPHILS % (AUTO) 0.2 %; EOSINOPHILS % (AUTO) 0.3 %; HCT - HEMATOCRIT 41.6 % (42.0-52.0); HGB - HEMOGLOBIN 13.7 g/dL (14.0-18.0); LYMPHOCYTES % (AUTO) 6.5 %; MEAN CORPUSCULAR HEMOGLOBIN 27.8 pg (27.0-31.0); MEAN CORPUSCULAR HGB CONC 32.9 g/dL (32.0-36.0); MEAN CORPUSCULAR VOLUME 84.4 fL (80.0-94.0); MEAN PLATELET VOLUME 10.9 fL (7.4-11.4); MONOCYTES % (AUTO) 10.9 %; NEUTROPHILS % (AUTO) 81.8 %; PLT - PLATELET COUNT 187 10^3/uL (130-450); RED BLOOD COUNT 4.93 10^6/uL (4.70-6.10); RED CELL DISTRIBUTION WIDTH 13.6 % (12.0-15.0); WHITE BLOOD COUNT 14.7 x10^3/uL (4.8-10.8)
[2021-04-15 05:38] LABS: ABNORMAL LYMPHS % (MANUAL) 0 %; BAND NEUTROPHILS % (MANUAL) 0 %
[2021-04-15 05:42] LABS: ALBUMIN 3.2 g/dL (3.2-5.5); ALBUMIN/GLOBULIN RATIO 1.2 (1.0-2.2); BILIRUBIN,TOTAL 6.1 mg/dL (0.2-1.0); CALCIUM 7.9 mg/dL (8.5-10.3); CREATININE 0.8 mg/dL (0.6-1.2); POTASSIUM 3.6 mmol/L (3.5-5.0); TOTAL PROTEIN 5.8 g/dL (6.7-8.2)
[2021-04-15 06:13] LABS: LYMPHOCYTES # (MANUAL) 1.2 10^3/uL (1.5-3.5); LYMPHOCYTES % (MANUAL) 8 %; MONOCYTES # (MANUAL) 1.9 10^3/uL (0.0-1.0); NEUTROPHILS # (MANUAL) 11.6 10^3/uL (1.5-6.6); PLATELET ESTIMATE, MANUAL NORMAL (130-450,000) (NORMAL); PLATELET MORPHOLOGY NORMAL APPEARANCE (NORMAL); RBC MORPHOLOGY (MULTIPLE) NORMAL APPEARANCE (NORMAL); WBC MORPHOLOGY (MULTIPLE) NORMAL APPEARANCE (NORMAL)
[2021-04-15 06:14] LABS: DIFFERENTIAL COMMENT MANUAL DIFFERENTIAL
[2021-04-15] MEDS: PANTOPRAZOLE 40 MG VIAL IVP SCH (06:43)
[2021-04-15] MEDS: LEVOTHYROXINE 100 MCG TABLET PO SCH (06:43)
[2021-04-15] MEDS: DOXAZOSIN 1 MG TABLET PO SCH (10:15)
[2021-04-15] MEDS: LOSARTAN 50 MG TABLET PO SCH ×2 (10:15→20:33)
[2021-04-15] MEDS: METOPROLOL TARTRATE 25 MG TABLET PO SCH ×2 (10:16→20:33)
[2021-04-15] MEDS: ATORVASTATIN 10 MG TABLET PO SCH (10:16)
[2021-04-15] MEDS ORDERED: SINCALIDE 5 MCG VIAL IV ONE (11:00)
[2021-04-15] MEDS ORDERED: SINCALIDE IV ONE (11:30)
[2021-04-15] MEDS ORDERED: SODIUM CHLORIDE 0.9% IV ONE (11:30)
--- NOTE | 2021-04-15 14:10 | Nuclear Medicine Report ---
PROCEDURE: Hepatobiliary HIDA w/o Rx INDICATIONS: JAUDICE, EVALUATE FOR OBSTRUCTION RADIOPHARMACEUTICAL: 4.3 mCi Tc-99m meprofenin i.v. and 2.11 ?g sincalide i.v.. Treatment 20 minutes before technetium 99m meprofenin injection. TECHNIQUE: The patient was pre-treated with 2.11 microgram sincalide (0.02 ?g/kg). Following intrav enous administration of Tc-99m Meprofenin, sequential anterior abdominal images were obtained through 120 minutes. COMPARISON: CT abdomen/pelvis, 04/13/2021. Ultrasound abdomen limited, 04/13/2021. MRCP, 04/14/2021. FINDINGS: Biliary scan: There is normal tracer uptake and delayed excretion by the liver with poor tracer ivan carole from the liver. There is normal visualization of the common bile duct, and normal tracer trans it into the duodenum. There is non-visualization of gallbladder. IMPRESSION: 1. Delayed tracer clearance from the liver consistent with hepatocellular disease such as hepatitis. Recommend clinical correlation. 2. Non-filling of gallbladder. The finding is consistent with cystic duct obstruction and compatible with acute cholecystitis. In the setting of severe liver disease, the test has decreased specificity . Causes for a false positive HIDA scan include chronic cholecystitis, alcoholic liver disease, hyper bilirubinemia and opioid abuse. 3. Normal filling of common bile duct and excretion of bile into the duodenum. The finding does not s upport biliary ductal obstruction. Reviewed by: Jose David Stafford MD on 04/15/2021 2:09 PM PDT Approved by: Jose David Stafford MD on 04/15/2021 2:09 PM PDT Station ID: [id number]
[2021-04-15] MEDS: HYDROmorphone 0.5 MG/0.5 ML SYRINGE IVP PRN (17:00)
[2021-04-16] MEDS: PIPERACILLIN/TAZOBACTAM 3.375 GM in SODIUM CHLORIDE 0.9% MINIBAG 100 ML IV SCH ×4 (01:34→20:37)
[2021-04-16] MEDS: D5NS W/20 MEQ KCL 1,000 ML IV SCH ×3 (04:19→23:42)
[2021-04-16 05:53] LABS: BASOPHILS % (AUTO) 0.2 %; EOSINOPHILS # (AUTO) 0.3 10^3/uL (0.0-0.7); EOSINOPHILS % (AUTO) 1.8 %; HCT - HEMATOCRIT 40.5 % (42.0-52.0); LYMPHOCYTES # (AUTO) 1.3 10^3/uL (1.5-3.5); LYMPHOCYTES % (AUTO) 9.1 %; MEAN CORPUSCULAR HEMOGLOBIN 27.4 pg (27.0-31.0); MEAN CORPUSCULAR HGB CONC 32.1 g/dL (32.0-36.0); MEAN CORPUSCULAR VOLUME 85.4 fL (80.0-94.0); MEAN PLATELET VOLUME 10.6 fL (7.4-11.4); MONOCYTES # (AUTO) 1.3 10^3/uL (0.0-1.0); MONOCYTES % (AUTO) 9.3 %; NEUTROPHILS # (AUTO) 11.2 10^3/uL (1.5-6.6); PLT - PLATELET COUNT 197 10^3/uL (130-450); RED BLOOD COUNT 4.74 10^6/uL (4.70-6.10); RED CELL DISTRIBUTION WIDTH 13.7 % (12.0-15.0); WHITE BLOOD COUNT 14.2 x10^3/uL (4.8-10.8)
[2021-04-16] MEDS: methocarbamoL 500 MG TABLET PO SCH ×4 (05:57→23:42)
[2021-04-16] MEDS: METOCLOPRAMIDE 10 MG/2 ML VIAL IVP SCH ×4 (05:57→23:42)
[2021-04-16] MEDS: PANTOPRAZOLE 40 MG VIAL IVP SCH (06:00)
[2021-04-16] MEDS: LEVOTHYROXINE 100 MCG TABLET PO SCH (06:00)
[2021-04-16 06:05] LABS: BILIRUBIN,TOTAL 2.3 mg/dL (0.2-1.0); CALCIUM 8.4 mg/dL (8.5-10.3); CREATININE 0.7 mg/dL (0.6-1.2); POTASSIUM 3.5 mmol/L (3.5-5.0); TOTAL PROTEIN 5.9 g/dL (6.7-8.2)
[2021-04-16] MEDS: DOXAZOSIN 1 MG TABLET PO SCH (08:23)
[2021-04-16] MEDS: LOSARTAN 50 MG TABLET PO SCH ×2 (08:23→20:35)
[2021-04-16] MEDS: METOPROLOL TARTRATE 25 MG TABLET PO SCH ×2 (08:23→20:35)
[2021-04-16] MEDS: ATORVASTATIN 10 MG TABLET PO SCH (08:23)
[2021-04-16] MEDS: SODIUM CHLORIDE FLUSH 0.9% 10 ML SYRINGE IVP SCH ×3 (08:24→23:42)
--- NOTE | 2021-04-16 09:35 | ANESTHESIA ---
Pre-Anesthesia VS, & Labs - Diagnosis possible duodenal mass - Procedure EGD Vital Signs: Temp Pulse Resp BP Pulse Ox 36.3 C L 82 21 141/84 H 97 04/16/21 08:00 04/16/21 08:00 04/16/21 08:00 04/16/21 08:00 04/16/21 08:00 Height: 5 ft 11 in Weight (kg): 105.5 kg Body Mass Index: 32.4 BMI Classification: Obese - NPO >8 hours - Lab Results Current Lab Results: Laboratory Tests 04/16/21 05:20: Sodium 138, Potassium 3.5, Chloride 108, Carbon Dioxide 22, Anion Gap 8.0, BUN 8, Creatinine 0.7, Estimated GFR (MDRD) 113, Glucose 132 H, Calcium 8.4 L, Total Bilirubin 2.3 H, AST 58 H, ALT 135 H, Alkaline Phosphatase 155 H, Total Protein 5.9 L, Albumin 3.0 L, Globulin 2.9, Albumin/Globulin Ratio 1.0 04/16/21 05:20: WBC 14.2 H, RBC 4.74, Hgb 13.0 L, Hct 40.5 L, MCV 85.4, MCH 27.4, MCHC 32.1, RDW 13.7, Plt Count 197, MPV 10.6, Neut # (Auto) 11.2 H, Lymph # (Auto) 1.3 L, Platte # (Auto) 1.3 H, Eos # (Auto) 0.3, Baso # (Auto) 0.0, Absolute Nucleated RBC 0.00, Nucleated RBC % 0.0 04/15/21 04:46: Sodium 139, Potassium 3.6, Chloride 104, Carbon Dioxide 24, Anion Gap 11.0, BUN 7, Creatinine 0.8, Estimated GFR (MDRD) 97, Glucose 125 H, Calcium 7.9 L, Total Bilirubin 6.1 H, AST 133 H, ALT 198 H, Alkaline Phosphatase 182 H, Total Protein 5.8 L, Albumin 3.2, Globulin 2.6, Albumin/Globulin Ratio 1.2 04/15/21 04:46: WBC 14.7 H, RBC 4.93, Hgb 13.7 L, Hct 41.6 L, MCV 84.4, MCH 27.8, MCHC 32.9, RDW 13.6, Plt Count 187, MPV 10.9, Neut # (Auto) Not Reportable, Lymph # (Auto) Not Reportable, Platte # (Auto) Not Reportable, Eos # (Auto) Not Reportable, Baso # (Auto) Not Reportable, Absolute Nucleated RBC Not Reportable, Total Counted 100, Band Neuts % (Manual) 0, Abnorm Lymph % (Manual) 0, Nucleated RBC % Not Reportable, Neutrophils # (Manual) 11.6 H, Lymphocytes # (Manual) 1.2 L, Monocytes # (Manual) 1.9 H, Eosinophils # (Manual) 0.0, Basop hils # (Manual) 0.0, Differential Comment MANUAL DIFFERENTIAL, WBC Morphology NORMAL APPEARANCE, Platelet Estimate NORMAL (130-450,000), Platelet Morphology NORMAL APPEARANCE, RBC Morph Micro Appear NORMAL APPEARANCE 04/14/21 15:40: Sodium 138, Potassium 3.6, Chloride 102, Carbon Dioxide 28, Anion Gap 8.0, BUN 8, Creatinine 0.9, Estimated GFR (MDRD) 84 L, Glucose 153 H, Calcium 8.8, Total Bilirubin 5.9 H, AST 184 H, ALT 241 H, Alkaline Phosphatase 192 H, Total Protein 6.3 L, Albumin 3.2, Globulin 3.1, Albumin/Globulin Ratio 1.0 04/14/21 15:40: WBC 13.1 H, RBC 4.99, Hgb 14.0, Hct 42.0, MCV 84.2, MCH 28.1, MCHC 33.3, RDW 13.4, Plt Count 199, MPV 10.1, Neut # (Auto) 10.9 H, Lymph # (Auto) 0.7 L, Platte # (Auto) 1.4 H, Eos # (Auto) 0.1, Baso # (Auto) 0.0, Absolute Nucleated RBC 0.00, Nucleated RBC % 0.0 04/14/21 02:41: Sodium 135, Potassium 3.3 L, Chloride 99 L, Carbon Dioxide 23, Anion Gap 13.0, BUN 10, Creatinine 0.9, Estimated GFR (MDRD) 84 L, Glucose 151 H , Calcium 8.8, Total Bilirubin 4.6 H, AST 226 H, ALT 254 H, Alkaline Phosphatase 196 H, Total Protein 6.8, Albumin 3.8, Globulin 3.0, Albumin/Globulin Ratio 1.3 04/14/21 02:41: WBC 12.6 H, RBC 5.35, Hgb 14.8, Hct 44.2, MCV 82.6, MCH 27.7, MCHC 33.5, RDW 13.1, Plt Count 211, MPV 10.5, Neut # (Auto) 10.5 H, Lymph # (Auto) 1.0 L, Platte # (Auto) 1.1 H, Eos # (Auto) 0.0, Baso # (Auto) 0.0, Absolute Nucleated RBC 0.00, Nucleated RBC % 0.0 04/13/21 19:41: Sodium 138, Potassium 3.1 L, Chloride 103, Carbon Dioxide 21, Anion Gap 14.0 H, BUN 12, Creatinine 1.0, Estimated GFR (MDRD) 75 L, Glucose 176 H, Calcium 9.0, Total Bilirubin 3.0 H, AST 195 H, ALT 206 H, Alkaline Phosphatase 212 H, Total Protein 6.8, Albumin 4.0, Globulin 2.8, Albumin/Globulin Ratio 1.4, Lipase 20 L 04/13/21 19:41: WBC 15.4 H, RBC 5.42, Hgb 15.2, Hct 45.5, MCV 83.9, MCH 28.0, MCHC 33.4, RDW 13.2, Plt Count 220, MPV 10.5, Neut # (Auto) 12.5 H, Lymph # (Auto) 1.9, Platte # (Auto) 0.8, Eos # (Auto) 0.1, Baso # (Auto) 0.0, Absolute Nucleated RBC 0.00, Nucleated RBC % 0.0 Lab results reviewed: Yes Fish Bones: 04/16/21 05:20 04/16/21 05:20 Home Medications and Allergies Home Medications: Ambulatory Orders Losartan Potassium 12.5 mg PO BID 04/14/21 Zolpidem Tartrate [Ambien Cr] 12.5 mg PO QPM PRN 04/14/21 Active Medications Atorvastatin Calcium (Atorvastatin 10 Mg Tablet) 10 mg PO DAILY [facility] Last Admin: 04/16/21 08:23 Dose: 10 mg Documented by: Doxazosin Mesylate (Doxazosin 1 Mg Tablet) 2 mg PO DAILY [facility] Last Admin: 04/16/21 08:23 Dose: 2 mg Documented by: Hydromorphone HCl (Hydromorphone 0.5 Mg/0.5 Ml Syringe) 0.5 mg IVP Q2H PRN PRN Reason: Pain 8 to 10 Last Admin: 04/15/21 17:00 Dose: 0.5 mg Documented by: Potassium Chloride/Dextrose/Sod Cl (D5ns W/20 Meq Kcl) 1,000 mls @ 125 mls/hr IV .Q8H [facility] Last Infusion: 04/16/21 08:55 Dose: 125 mls/hr Documented by: Acetaminophen (Ofirmev) 100 mls @ 400 mls/hr IV Q6HR PRN PRN Reason: PAIN Piperacillin Sod/Tazobactam (Sod 3.375 gm/ Sodium Chloride) 100 mls @ 200 mls/hr IV Q6H [facility] Last Infusion: 04/16/21 08:55 Dose: Infused Documented by: Levothyroxine Sodium (Levothyroxine 100 Mcg Tablet) 150 mcg PO QDAC [facility] Last Admin: 04/16/21 06:00 Dose: 150 mcg Documented by: Losartan Potassium (Losartan 50 Mg Tablet) 25 mg PO BID [facility] Last Admin: 04/16/21 08:23 Dose: 25 mg Documented by: Methocarbamol (Methocarbamol 500 Mg Tablet) 500 mg PO Q6HR [facility] Last Admin: 04/16/21 05:57 Dose: 500 mg Documented by: Metoclopramide HCl (Metoclopramide 10 Mg/2 Ml Vial) 10 mg IVP Q6HR [facility] Last Admin: 04/16/21 05:57 Dose: 10 mg Documented by: Metoprolol Tartrate (Metoprolol Tartrate 25 Mg Tablet) 25 mg PO BID [facility] Last Admin: 04/16/21 08:23 Dose: 25 mg Documented by: Ondansetron HCl (Ondansetron 4 Mg/2 Ml Vial) 4 mg IVP Q6HR PRN PRN Reason: Nausea / Vomiting Pantoprazole Sodium (Pantoprazole 40 Mg Vial) 40 mg IVP QDAC [facility] Last Admin: 04/16/21 06:00 Dose: 40 mg Documented by: Sodium Chloride (Sodium Chloride Flush 0.9% 10 Ml Syringe) 10 ml IVP 0100,0900,1700 [facility] Last Admin: 04/16/21 08:24 Dose: Not Given Documented by: Sodium Chloride (Sodium Chloride Flush 0.9% 10 Ml Syringe) 10 ml IVP PRN PRN PRN Reason: NEEDED PER PROVIDER ORDERS Last Admin: 04/14/21 04:34 Dose: 20 ml Documented by: Levothyroxine Sodium 150 mcg PO QDAC 12/27/16 Metoprolol Tartrate 50 mg PO BID 12/27/16 Simvastatin 20 mg PO QPM 12/27/16 Doxazosin [Cardura] 2 mg PO QPM 10/17/20 Aspirin [Aspirin EC] 81 mg PO DAILY 10/18/20 Losartan Potassium 12.5 mg PO BID 04/14/21 Zolpidem Tartrate [Ambien Cr] 12.5 mg PO QPM PRN 04/14/21 Allergies/Adverse Reactions: Allergies Allergy/AdvReac Type Severity Reaction Status Date / Time No Known Drug Allergies Allergy Verified 04/13/21 19:33 Anes History & Medical History - Anesthetic History Anesthesia Complications: reports: No previous complications Family history of Anesthesia Complications: Denies Family history of Malignant Hyperthermia: Denies - Medical History Cardiovascular: reports: Hypertension, High cholesterol, Coronary artery disease, Other (Hx of CABG in 2017) Pulmonary: reports: None, Sleep apnea (undiagnosed) Gastrointestinal: reports: GERD Urinary: reports: None, Nocturia Neuro: reports: None Musculoskeletal: reports: Osteoarthritis Endocrine/Autoimmune: reports: HyPOthyroidism Blood Disorders: reports: None Skin: reports: None Smoking Status: Never smoker - Surgical History Eyes Ears Nose Throat (EENT): reports: Tonsil/Adenoidectomy Cardiothoracic: reports: CABG Orthopedic: reports: Carpal Tunnel surgery Exam General: Alert, Oriented x3, Cooperative, No acute distress Dental: WNL Mouth Openin Fingerbreadth Neck Mobility: Normal Mallampati classification: II Respiratory: Lungs clear, Normal breath sounds, No respiratory distress, No accessory muscle use Cardiovascular: Regular rate, Normal S1, Normal S2, No murmurs Plan Anesthesia Type: General, Total IV Consent for Procedure(s) Verified and Reviewed: Yes Code Status: Attempt Resuscitation ASA classification: 3-Severe systemic disease Is this case an emergency?: No
[2021-04-16] MEDS ORDERED: LIDOCAINE-PF 2% 10 ML AMP SUBQ ONE (09:41)
[2021-04-16] MEDS ORDERED: PROPOFOL 200 MG/20 ML VIAL IVP ONE (09:41)
--- NOTE | 2021-04-16 10:07 | PROVIDER PROGRESS NOTE ---
Progress Note Subjective Hospital day #2 with jaundice, elevated LFTs concerning for hepatitis, and admitting differential to include choledocholithiasis. Please see imaging results as per below. Concerns for duodenal and distal gastric thickening. Pending upper endoscopy. Objective Afebrile hemodynamically acceptable General Appearance: positive: No acute distress Eyes Bilateral: positive: Normal inspection ENT: positive: ENT inspection nml Neck: positive: Nml inspection Respiratory: positive: Chest non-tender, No respiratory distress, Breath sounds nml. negative: Wheezes, Rales, Rhonchi Cardiovascular: positive: Regular rate & rhythm Abdomen: positive: No distention, Other. negative: Guarding, Rebound Extremities: positive: Non-tender, Full ROM, Nml appearance Neurologic/Psychiatric: positive: Oriented x3, CN's nml (2-12) Bilirubin is increased to 6. LFTs remain elevated however trending downward. Impression/Plan Painful jaundice with concerns for cholecystitis and possible admitting differential to include choledocholithiasis. All imaging thus far without any concerns for obstructive process. Chronic cholecystitis per HIDA scan. Will obtain hepatitis panel. We will proceed with upper endoscopy to work-up the patient for their abnormal foregut pathology on imaging. (1) GI - IVF, n.p.o. GI ppx. Opiate sparring analgesia. (2) SURGERY - we will proceed with upper endoscopy. See EGD discussion. May still be candidate for cholecystectomy after hepatitis work-up. (3) Renal/Lytes - continue IVF. Renal indices within normal limits. (4) Respiratory - O2 as necessary. Continue IS. (5) Heme - Will continue with DVT ppx. H/H stable. (6) Cardiovascular - HD acceptable. (7) Neuro - Opiate sparring analgesia. Antispasmodics with Robaxin. [Toradol]. Neuropathic agents. (8) Immune/Infectious Disease - continue IV antibiotics. Patient to continue with work-up as listed elsewhere. Upper GI study with small bowel follow-through also ordered. We will proceed with esophagogastroduodenoscopy. This to include random biopsies of the duodenum, stomach, GE junction as well as other necessary biopsies to rule out amongst other celiac sprue, gastritis/gastropathy, reflux as well as Watson's, together with H. pylori. Risk and benefits discussed, the former include amongst others bleeding, infection, perforation, need for further procedures/surgery, missed lesions, as well as anesthetic complications of heart attack, stroke, pulmonary embolism and . Before any definitive interventions will proceed with this first. Please note that voice recognition software was used to transcribe this note and inadvertent errors might persist in spite of review and editing. I am obliged to you for your attention. I am thankful to you for allowing me to participate with you in this care of this patient. HIDA scan impression: 1. Delayed tracer clearance from the liver consistent with hepatocellular disease such as hepatitis. Recommend clinical correlation. 2. Nonfilling of the gallbladder. The finding is consistent with cystic duct obstruction compatible with acute cholecystitis. In the setting of severe liver disease, the test has decreased/specificity. Causes for false positive HIDA include chronic cholecystitis, alcoholic liver disease, hyperbilirubinemia and opioid abuse. 3. Normal filling of the common bile duct and excretion of bile into the duodenum. The finding does not support biliary ductal obstruction. MRCP impression 1. No gallstones identified. 2. No biliary intraluminal defect demonstrated. 3. Mild biliary ductal dilatation 4. The gallbladder is prominent.
--- NOTE | 2021-04-16 10:51 | PROVIDER PROGRESS NOTE ---
Progress Note 65-year-old male presenting with painful jaundice and worsening signs of hepatitis with resolution of LFTs. Initial imaging concerning for monserrat docholithiasis and cholecystitis however currently HIDA only points to acute on chronic cholecystitis with potential for liver dysfunction. MRCP without any choledocholithiasis. Imaging concerning for duodenal/distal gastric thickening. Please see below for results. Esophagogastroduodenoscopy with the following findings: 1. Distal duodenum normal. No evidence of of duodenitis. Cold forcep biopsy obtained. Hemostatic. The first portion of the duodenum showed some signs of inflammatory changes and possible historic peptic ulcer disease postpyloric. Biopsies taken independently cold forceps. Hemostatic. 2. Antrum without any antritis. Biopsies obtained cold forceps. Hemostatic. Patent pylorus. 3. Retroflexion with no significant hiatal herniation. 4. No diffuse gastritis or gastropathy. No polyps. No ulcerations. 5. GE junction with mild inflammatory changes and irregular Z-line. Biopsied. 6. Distal esophageal biopsies above the Z-line to rule out metaplasia Plan going forward: 1. Bowel rest with clear liquids 2. Hepatitis panel to evaluate for any viral etiology of the patient's abnormal LFTs 3. Trend normalization of bilirubins 4. We will consider laparoscopic cholecystectomy with intraoperative cholangiogram on Wednesday once liver function tests have normalized.
--- NOTE | 2021-04-16 10:58 | ANESTHESIA POST OP EVALUATION ---
Anesthesia Post Eval - Post Anesthesia Eval Vitals: Last Vital Signs Temp 36.2 C L 04/16/21 10:40 Pulse 64 04/16/21 10:40 Resp 17 04/16/21 10:40 BP 123/69 04/16/21 10:40 Pulse Ox 99 04/16/21 10:40 CV Function Including HR & BP: Stable Pain Control: Satisfactory Nausea & Vomiting: Negative Mental Status: Baseline Respiratory Status: Airway Patent Hydration Status: Satisfactory Anesthesia Complications: None
[2021-04-16] MEDS: SODIUM CHLORIDE FLUSH 0.9% 10 ML SYRINGE IVP PRN (11:14)
[2021-04-16 12:28] LABS: BILIRUBIN,TOTAL 2.4 mg/dL (0.2-1.0); CALCIUM 8.6 mg/dL (8.5-10.3); CREATININE 0.7 mg/dL (0.6-1.2); POTASSIUM 3.7 mmol/L (3.5-5.0); TOTAL PROTEIN 6.1 g/dL (6.7-8.2)
--- NOTE | 2021-04-16 16:59 | CONSULTATION NOTE ---
Consultation Report: Called for 2nd time for PIV. First PIV infiltrated. Right 20 ga PIV placed in basilic vein under US guidance. Pt "tasted" flush, no swelling with flush, easily flushed, no pain on flush.
[2021-04-16] MEDS: HEPARIN 5,000 UNIT/ML VIAL SUBQ SCH (20:36)
[2021-04-17] MEDS: PIPERACILLIN/TAZOBACTAM 3.375 GM in SODIUM CHLORIDE 0.9% MINIBAG 100 ML IV SCH ×4 (01:25→20:08)
[2021-04-17 05:28] LABS: BASOPHILS % (AUTO) 0.2 %; EOSINOPHILS # (AUTO) 0.5 10^3/uL (0.0-0.7); EOSINOPHILS % (AUTO) 5.1 %; HCT - HEMATOCRIT 39.1 % (42.0-52.0); HGB - HEMOGLOBIN 12.9 g/dL (14.0-18.0); LYMPHOCYTES # (AUTO) 1.5 10^3/uL (1.5-3.5); LYMPHOCYTES % (AUTO) 15.5 %; MEAN CORPUSCULAR HEMOGLOBIN 27.4 pg (27.0-31.0); MEAN PLATELET VOLUME 10.7 fL (7.4-11.4); MONOCYTES % (AUTO) 10.7 %; NEUTROPHILS # (AUTO) 6.7 10^3/uL (1.5-6.6); NEUTROPHILS % (AUTO) 68.2 %; PLT - PLATELET COUNT 237 10^3/uL (130-450); RED BLOOD COUNT 4.71 10^6/uL (4.70-6.10); RED CELL DISTRIBUTION WIDTH 13.2 % (12.0-15.0); WHITE BLOOD COUNT 9.8 x10^3/uL (4.8-10.8)
[2021-04-17 05:39] LABS: ALBUMIN 2.9 g/dL (3.2-5.5); CALCIUM 8.5 mg/dL (8.5-10.3); CREATININE 0.9 mg/dL (0.6-1.2); POTASSIUM 3.5 mmol/L (3.5-5.0); TOTAL PROTEIN 5.8 g/dL (6.7-8.2)
[2021-04-17] MEDS: PANTOPRAZOLE 40 MG VIAL IVP SCH (06:09)
[2021-04-17] MEDS: METOCLOPRAMIDE 10 MG/2 ML VIAL IVP SCH ×3 (06:09→17:15)
[2021-04-17] MEDS: LEVOTHYROXINE 100 MCG TABLET PO SCH (06:09)
[2021-04-17] MEDS: methocarbamoL 500 MG TABLET PO SCH ×3 (06:09→17:14)
[2021-04-17] MEDS: ATORVASTATIN 10 MG TABLET PO SCH (08:18)
[2021-04-17] MEDS: D5NS W/20 MEQ KCL 1,000 ML IV SCH ×2 (08:20→17:12)
[2021-04-17] MEDS: DOXAZOSIN 1 MG TABLET PO SCH (08:20)
[2021-04-17] MEDS: LOSARTAN 50 MG TABLET PO SCH ×2 (08:21→20:08)
[2021-04-17] MEDS: polyethylene glycoL 3350 17 GM PACKET PO SCH (08:23)
[2021-04-17] MEDS: METOPROLOL TARTRATE 25 MG TABLET PO SCH ×2 (08:25→20:08)
[2021-04-17] MEDS: HEPARIN 5,000 UNIT/ML VIAL SUBQ SCH ×2 (08:37→20:07)
[2021-04-17] MEDS: SODIUM CHLORIDE FLUSH 0.9% 10 ML SYRINGE IVP SCH ×2 (08:39→16:33)
[2021-04-17 13:26] LABS: HEPATITIS A IGM NON-REACTIVE (NON-REACTIVE); HEPATITIS B CORE ANTIBODY IGM NON-REACTIVE (NON-REACTIVE); HEPATITIS B SURFACE ANTIGEN NON-REACTIVE (NON-REACTIVE); HEPATITIS C ANTIBODY NON-REACTIVE (NON-REACTIVE)
[2021-04-18] MEDS: METOCLOPRAMIDE 10 MG/2 ML VIAL IVP SCH ×5 (00:27→23:35)
[2021-04-18] MEDS: methocarbamoL 500 MG TABLET PO SCH ×5 (00:27→23:35)
[2021-04-18] MEDS: SODIUM CHLORIDE FLUSH 0.9% 10 ML SYRINGE IVP SCH ×4 (00:27→23:35)
[2021-04-18] MEDS: D5NS W/20 MEQ KCL 1,000 ML IV SCH ×3 (00:30→21:04)
[2021-04-18] MEDS: INSULIN REGULAR HUMAN 300 UNIT/3 ML VIAL SUBQ SCH ×4 (00:31→17:19)
[2021-04-18] MEDS: PIPERACILLIN/TAZOBACTAM 3.375 GM in SODIUM CHLORIDE 0.9% MINIBAG 100 ML IV SCH ×4 (01:30→20:55)
[2021-04-18] MEDS: LEVOTHYROXINE 100 MCG TABLET PO SCH (06:36)
[2021-04-18] MEDS: PANTOPRAZOLE 40 MG VIAL IVP SCH (06:36)
[2021-04-18] MEDS: ATORVASTATIN 10 MG TABLET PO SCH (08:06)
[2021-04-18] MEDS: DOXAZOSIN 1 MG TABLET PO SCH (08:07)
[2021-04-18] MEDS: METOPROLOL TARTRATE 25 MG TABLET PO SCH ×2 (08:08→20:56)
[2021-04-18] MEDS: HEPARIN 5,000 UNIT/ML VIAL SUBQ SCH ×2 (08:08→20:59)
[2021-04-18] MEDS: LOSARTAN 50 MG TABLET PO SCH ×2 (08:09→20:55)
[2021-04-18] MEDS: polyethylene glycoL 3350 17 GM PACKET PO SCH (09:38)
--- NOTE | 2021-04-18 11:58 | ANESTHESIA ---
Pre-Anesthesia VS, & Labs - Diagnosis cholecystitis - Procedure lap monserrat Vital Signs: Temp Pulse Resp BP Pulse Ox 36.7 C 56 L 16 149/103 H 96 04/18/21 08:00 04/18/21 08:00 04/18/21 08:00 04/18/21 08:08 04/18/21 08:00 Height: 5 ft 11 in Weight (kg): 105.5 kg Body Mass Index: 32.4 BMI Classification: Obese - NPO >8 hours - Lab Results Current Lab Results: Laboratory Tests 04/17/21 04:35: Sodium 139, Potassium 3.5, Chloride 107, Carbon Dioxide 24, Anion Gap 8.0, BUN 7, Creatinine 0.9, Estimated GFR (MDRD) 84 L, Glucose 121 H, Calcium 8.5, Total Bilirubin 2.0 H, AST 34, ALT 97 H, Alkaline Phosphatase 136 H , Total Protein 5.8 L, Albumin 2.9 L, Globulin 2.9, Albumin/Globulin Ratio 1.0 04/17/21 04:35: WBC 9.8, RBC 4.71, Hgb 12.9 L, Hct 39.1 L, MCV 83.0, MCH 27.4, MCHC 33.0, RDW 13.2, Plt Count 237, MPV 10.7, Neut # (Auto) 6.7 H, Lymph # (Auto) 1.5, Nuckolls # (Auto) 1.0, Eos # (Auto) 0.5, Baso # (Auto) 0.0, Absolute Nucleated RBC 0.00, Nucleated RBC % 0.0 04/16/21 12:10: Sodium 137, Potassium 3.7, Chloride 103, Carbon Dioxide 24, Anion Gap 10.0, BUN 7, Creatinine 0.7, Estimated GFR (MDRD) 113, Glucose 129 H, Calcium 8.6, Total Bilirubin 2.4 H, AST 48 H, ALT 129 H, Alkaline Phosphatase 161 H, Total Protein 6.1 L, Albumin 3.0 L, Globulin 3.1, Albumin/Globulin Ratio 1.0 04/16/21 05:20: Sodium 138, Potassium 3.5, Chloride 108, Carbon Dioxide 22, Anion Gap 8.0, BUN 8, Creatinine 0.7, Estimated GFR (MDRD) 113, Glucose 132 H, Calcium 8.4 L, Total Bilirubin 2.3 H, AST 58 H, ALT 135 H, Alkaline Phosphatase 155 H, Total Protein 5.9 L, Albumin 3.0 L, Globulin 2.9, Albumin/Globulin Ratio 1.0 04/16/21 05:20: WBC 14.2 H, RBC 4.74, Hgb 13.0 L, Hct 40.5 L, MCV 85.4, MCH 27.4, MCHC 32.1, RDW 13.7, Plt Count 197, MPV 10.6, Neut # (Auto) 11.2 H, Lymph # (Auto) 1.3 L, Nuckolls # (Auto) 1.3 H, Eos # (Auto) 0.3, Baso # (Auto) 0.0, Absolute Nucleated RBC 0.00, Nucleated RBC % 0.0 04/15/21 04:46: Sodium 139, Potassium 3.6, Chloride 104, Carbon Dioxide 24, Anion Gap 11.0, BUN 7, Creatinine 0.8, Estimated GFR (MDRD) 97, Glucose 125 H, Calcium 7.9 L, Total Bilirubin 6.1 H, AST 133 H, ALT 198 H, Alkaline Phosphatase 182 H, Total Protein 5.8 L, Albumin 3.2, Globulin 2.6, Albumin/Globulin Ratio 1.2 04/15/21 04:46: WBC 14.7 H, RBC 4.93, Hgb 13.7 L, Hct 41.6 L, MCV 84.4, MCH 27.8, MCHC 32.9, RDW 13.6, Plt Count 187, MPV 10.9, Neut # (Auto) Not Reportable, Lymph # (Auto) Not Reportable, Nuckolls # (Auto) Not Reportable, Eos # (Auto) Not Reportable, Baso # (Auto) Not Reportable, Absolute Nucleated RBC Not Reportable, Total Counted 100, Band Neuts % (Manual) 0, Abnorm Lymph % (Manual) 0, Nucleated RBC % Not Reportable, Neutrophils # (Manual) 11.6 H, Lymphocytes # (Manual) 1.2 L, Monocytes # (Manual) 1.9 H, Eosinophils # (Manual) 0.0, Baso phils # (Manual) 0.0, Differential Comment MANUAL DIFFERENTIAL, WBC Morphology NORMAL APPEARANCE, Platelet Estimate NORMAL (130-450,000), Platelet Morphology NORMAL APPEARANCE, RBC Morph Micro Appear NORMAL APPEARANCE 04/14/21 15:40: Sodium 138, Potassium 3.6, Chloride 102, Carbon Dioxide 28, Anion Gap 8.0, BUN 8, Creatinine 0.9, Estimated GFR (MDRD) 84 L, Glucose 153 H, Calcium 8.8, Total Bilirubin 5.9 H, AST 184 H, ALT 241 H, Alkaline Phosphatase 192 H, Total Protein 6.3 L, Albumin 3.2, Globulin 3.1, Albumin/Globulin Ratio 1.0 04/14/21 15:40: WBC 13.1 H, RBC 4.99, Hgb 14.0, Hct 42.0, MCV 84.2, MCH 28.1, MCHC 33.3, RDW 13.4, Plt Count 199, MPV 10.1, Neut # (Auto) 10.9 H, Lymph # (Auto) 0.7 L, Nuckolls # (Auto) 1.4 H, Eos # (Auto) 0.1, Baso # (Auto) 0.0, Absolute Nucleated RBC 0.00, Nucleated RBC % 0.0 04/14/21 02:41: Sodium 135, Potassium 3.3 L, Chloride 99 L, Carbon Dioxide 23, Anion Gap 13.0, BUN 10, Creatinine 0.9, Estimated GFR (MDRD) 84 L, Glucose 151 H , Calcium 8.8, Total Bilirubin 4.6 H, AST 226 H, ALT 254 H, Alkaline Phosphatase 196 H, Total Protein 6.8, Albumin 3.8, Globulin 3.0, Albumin/Globulin Ratio 1.3 04/14/21 02:41: WBC 12.6 H, RBC 5.35, Hgb 14.8, Hct 44.2, MCV 82.6, MCH 27.7, MCHC 33.5, RDW 13.1, Plt Count 211, MPV 10.5, Neut # (Auto) 10.5 H, Lymph # (Auto) 1.0 L, Nuckolls # (Auto) 1.1 H, Eos # (Auto) 0.0, Baso # (Auto) 0.0, Absolute Nucleated RBC 0.00, Nucleated RBC % 0.0 04/13/21 19:41: Sodium 138, Potassium 3.1 L, Chloride 103, Carbon Dioxide 21, Anion Gap 14.0 H, BUN 12, Creatinine 1.0, Estimated GFR (MDRD) 75 L, Glucose 176 H, Calcium 9.0, Total Bilirubin 3.0 H, AST 195 H, ALT 206 H, Alkaline Phosphatase 212 H, Total Protein 6.8, Albumin 4.0, Globulin 2.8, Albumin/Globulin Ratio 1.4, Lipase 20 L 04/13/21 19:41: WBC 15.4 H, RBC 5.42, Hgb 15.2, Hct 45.5, MCV 83.9, MCH 28.0, MCHC 33.4, RDW 13.2, Plt Count 220, MPV 10.5, Neut # (Auto) 12.5 H, Lymph # (Auto) 1.9, Nuckolls # (Auto) 0.8, Eos # (Auto) 0.1, Baso # (Auto) 0.0, Absolute Nucleated RBC 0.00, Nucleated RBC % 0.0 Fish Bones: 04/17/21 04:35 04/17/21 04:35 Home Medications and Allergies Home Medications: Ambulatory Orders Losartan Potassium 12.5 mg PO BID 04/14/21 Zolpidem Tartrate [Ambien Cr] 12.5 mg PO QPM PRN 04/14/21 Active Medications Atorvastatin Calcium (Atorvastatin 10 Mg Tablet) 10 mg PO DAILY [facility] Last Admin: 04/18/21 08:06 Dose: 10 mg Documented by: Doxazosin Mesylate (Doxazosin 1 Mg Tablet) 2 mg PO DAILY [facility] Last Admin: 04/18/21 08:07 Dose: 2 mg Documented by: Heparin Sodium (Porcine) (Heparin 5,000 Unit/Ml Vial) 5,000 unit SUBQ BID [facility] Last Admin: 04/18/21 08:08 Dose: Not Given Documented by: Hydromorphone HCl (Hydromorphone 0.5 Mg/0.5 Ml Syringe) 0.5 mg IVP Q2H PRN PRN Reason: Pain 8 to 10 Last Admin: 04/15/21 17:00 Dose: 0.5 mg Documented by: Potassium Chloride/Dextrose/Sod Cl (D5ns W/20 Meq Kcl) 1,000 mls @ 125 mls/hr IV .Q8H [facility] Last Admin: 04/18/21 09:38 Dose: 125 mls/hr Documented by: Acetaminophen (Ofirmev) 100 mls @ 400 mls/hr IV Q6HR PRN PRN Reason: PAIN Piperacillin Sod/Tazobactam (Sod 3.375 gm/ Sodium Chloride) 100 mls @ 200 mls/ hr IV Q6H [facility] Last Infusion: 04/18/21 08:35 Dose: Infused Documented by: Insulin Human Regular (Insulin Regular Human 300 Unit/3 Ml Vial) 1 - 5 unit SUBQ Q6HR [facility]; Protocol Last Admin: 04/18/21 06:37 Dose: Not Given Documented by: Levothyroxine Sodium (Levothyroxine 100 Mcg Tablet) 150 mcg PO QDAC [facility] Last Admin: 04/18/21 06:36 Dose: 150 mcg Documented by: Losartan Potassium (Losartan 50 Mg Tablet) 25 mg PO BID [facility] Last Admin: 04/18/21 08:09 Dose: 25 mg Documented by: Methocarbamol (Methocarbamol 500 Mg Tablet) 500 mg PO Q6HR [facility] Last Admin: 04/18/21 06:36 Dose: 500 mg Documented by: Metoclopramide HCl (Metoclopramide 10 Mg/2 Ml Vial) 10 mg IVP Q6HR [facility] Last Admin: 04/18/21 06:36 Dose: 10 mg Documented by: Metoprolol Tartrate (Metoprolol Tartrate 25 Mg Tablet) 25 mg PO BID [facility] Last Admin: 04/18/21 08:08 Dose: 25 mg Documented by: Ondansetron HCl (Ondansetron 4 Mg/2 Ml Vial) 4 mg IVP Q6HR PRN PRN Reason: Nausea / Vomiting Pantoprazole Sodium (Pantoprazole 40 Mg Vial) 40 mg IVP QDAC [facility] Last Admin: 04/18/21 06:36 Dose: 40 mg Documented by: Polyethylene Glycol (Polyethylene Glycol 3350 17 Gm Packet) 17 gm PO DAILY [facility] Last Admin: 04/18/21 09:38 Dose: Not Given Documented by: Sodium Chloride (Sodium Chloride Flush 0.9% 10 Ml Syringe) 10 ml IVP 0100,0900,1700 [facility] Last Admin: 04/18/21 09:38 Dose: Not Given Documented by: Sodium Chloride (Sodium Chloride Flush 0.9% 10 Ml Syringe) 10 ml IVP PRN PRN PRN Reason: NEEDED PER PROVIDER ORDERS Last Admin: 04/16/21 11:14 Dose: 10 ml Documented by: Levothyroxine Sodium 150 mcg PO QDAC 12/27/16 Metoprolol Tartrate 50 mg PO BID 12/27/16 Simvastatin 20 mg PO QPM 12/27/16 Doxazosin [Cardura] 2 mg PO QPM 10/17/20 Aspirin [Aspirin EC] 81 mg PO DAILY 10/18/20 Losartan Potassium 12.5 mg PO BID 04/14/21 Zolpidem Tartrate [Ambien Cr] 12.5 mg PO QPM PRN 04/14/21 Allergies/Adverse Reactions: Allergies Allergy/AdvReac Type Severity Reaction Status Date / Time No Known Drug Allergies Allergy Verified 04/13/21 19:33 Anes History & Medical History - Anesthetic History Anesthesia Complications: reports: No previous complications - Medical History Cardiovascular: reports: Hypertension, High cholesterol, Coronary artery disease, Other (Hx of CABG in 2017) Pulmonary: reports: None, Sleep apnea (undiagnosed) Gastrointestinal: reports: GERD Urinary: reports: None, Nocturia Neuro: reports: None Musculoskeletal: reports: Osteoarthritis Endocrine/Autoimmune: reports: HyPOthyroidism Blood Disorders: reports: None Skin: reports: None Smoking Status: Never smoker - Surgical History Eyes Ears Nose Throat (EENT): reports: Tonsil/Adenoidectomy Cardiothoracic: reports: CABG Orthopedic: reports: Carpal Tunnel surgery Exam General: Alert, Oriented x3, Cooperative, No acute distress Dental: WNL Mouth Openin Fingerbreadth Neck Mobility: Normal Mallampati classification: II Thyromental Distance: 4-6 cm Mental/Cognitive Status: Alert/Oriented X3, Normal for patient Plan Anesthesia Type: General Consent for Procedure(s) Verified and Reviewed: Yes Code Status: Attempt Resuscitation ASA classification: 3-Severe systemic disease Is this case an emergency?: No
[2021-04-18] MEDS ORDERED: LIDOCAINE 2%-EPI 1:100000 20 ML MDV ONE (12:00)
[2021-04-18] MEDS ORDERED: IOTHALAMATE MEGLUMINE 50 ML VIAL ONE (12:00)
[2021-04-18] MEDS ORDERED: BUPIVACAINE 0.5% PF 30 ML VIAL ONE (12:00)
[2021-04-18] MEDS ORDERED: IOTHALAMATE MEGLUMINE 50 ML VIAL IVP ONE (12:16)
[2021-04-18] MEDS ORDERED: LIDOCAINE 2%-EPI 1:100000 20 ML MDV SUBQ ONE (12:17)
[2021-04-18] MEDS ORDERED: BUPIVACAINE 0.5% PF 30 ML VIAL INFIL ONE (12:17)
--- NOTE | 2021-04-18 12:26 | PROVIDER PROGRESS NOTE ---
Progress Note Subjective 65-year-old male presenting with painful jaundice and worsening signs of hepatitis with resolution of LFTs. Initial imaging concerning for choledocholithiasis and cholecystitis however currently HIDA only points to acute on chronic cholecystitis with potential for liver dysfunction. MRCP without any choledocholithiasis. Imaging concerning for duodenal/distal gastric thickening. Please see below for results. Esophagogastroduodenoscopy with the following findings: 1. Distal duodenum normal. No evidence of of duodenitis. Cold forcep biopsy obtained. Hemostatic. The first portion of the duodenum showed some signs of inflammatory changes and possible historic peptic ulcer disease postpyloric. Biopsies taken independently cold forceps. Hemostatic. 2. Antrum without any antritis. Biopsies obtained cold forceps. Hemostatic. Patent pylorus. 3. Retroflexion with no significant hiatal herniation. 4. No diffuse gastritis or gastropathy. No polyps. No ulcerations. 5. GE junction with mild inflammatory changes and irregular Z-line. Biopsied. 6. Distal esophageal biopsies above the Z-line to rule out metaplasia Hepatitis panel negative. Objective General Appearance: positive: No acute distress Eyes Bilateral: positive: Normal inspection ENT: positive: ENT inspection nml Neck: positive: Nml inspection Respiratory: positive: Chest non-tender, No respiratory distress, Breath sounds nml. negative: Wheezes, Rales, Rhonchi Cardiovascular: positive: Regular rate & rhythm Abdomen: positive: No distention, Other. negative: Guarding, Rebound Extremities: positive: Non-tender, Full ROM, Nml appearance Neurologic/Psychiatric: positive: Oriented x3, CN's nml (2-12) Assessment/PLAN: Hospital day number #5 s/p listed procedue (upper endoscopy). Presenting with hyperbilirubinemia currently resolving. Liver function test also resolving with no evidence of hepatitis on serologies. MRCP, HIDA scan, as well as CT and abdominal ultrasound all reviewed. Biliary colic with acute on chronic cholecystitis. Will perform laparoscopic cholecystectomy with intraoperative liver biopsy. Risk and benefits discussed and questions answered informed consent obtained. (1) GI - IVF, NPO. GI ppx. Anticipate ileus. Opiate sparring analgesia. (2) SURGERY -diagnostic laparoscopy, laparoscopic cholecystectomy, intraoperative cholangiogram, intraoperative laparoscopic liver biopsy. (3) Renal/Lytes - continue IVF. Renal indices within normal limits. (4) Respiratory - O2 as necessary. Continue IS. (5) Heme - Will continue with DVT ppx. H/H stable. (6) Cardiovascular - HD acceptable. (7) Neuro - Opiate sparring analgesia. Antispasmodics with Robaxin. Neuropathic agents.
[2021-04-18] MEDS ORDERED: MIDAZOLAM 2 MG/2 ML VIAL ONE (12:39)
[2021-04-18] MEDS ORDERED: fentaNYL 100 MCG/2 ML VIAL ONE ×2 (12:39→15:27)
[2021-04-18] MEDS ORDERED: PROPOFOL 200 MG/20 ML VIAL IVP ONE (12:41)
[2021-04-18] MEDS ORDERED: LIDOCAINE-MPF 2% 5 ML VIAL ONE (12:41)
[2021-04-18] MEDS ORDERED: ROCURONIUM 50 MG/5 ML VIAL ONE (12:42)
[2021-04-18] MEDS ORDERED: DEXAMETHASONE 4 MG/ML VIAL ONE (13:11)
[2021-04-18] MEDS ORDERED: ONDANSETRON 4 MG/2 ML VIAL ONE (13:11)
[2021-04-18] MEDS ORDERED: HYDROmorphone 0.5 MG/0.5 ML SYRINGE IVP PRN ×2 (13:23→17:25)
[2021-04-18] MEDS ORDERED: fentaNYL 100 MCG/2 ML VIAL IVP PRN (13:23)
[2021-04-18] MEDS ORDERED: METOCLOPRAMIDE 10 MG/2 ML VIAL IVP PRN (13:23)
[2021-04-18] MEDS ORDERED: NALOXONE 0.4 MG/ML VIAL IVP PRN (13:23)
[2021-04-18] MEDS ORDERED: ePHEDrine 50 MG/ML VIAL IVP PRN (13:23)
[2021-04-18] MEDS ORDERED: ONDANSETRON 4 MG/2 ML VIAL IVP PRN (13:23)
[2021-04-18] MEDS ORDERED: ATROPINE ABBOJECT 1 MG/10 ML SYRINGE IVP PRN (13:23)
[2021-04-18] MEDS ORDERED: MORPHINE 2 MG/ML CARPUJECT IVP PRN (13:23)
[2021-04-18] MEDS ORDERED: LACTATED RINGERS 1,000 ML IV SCH (14:00)
[2021-04-18] MEDS ORDERED: KETOROLAC 30 MG/ML VIAL ONE (15:02)
[2021-04-18] MEDS ORDERED: LACTATED RINGERS 1,000 ML IV ONE (15:15)
[2021-04-18] MEDS ORDERED: HYDROmorphone 0.5 MG/0.5 ML SYRINGE ONE (15:28)
--- NOTE | 2021-04-18 15:30 | OPERATIVE REPORT ---
Operative Report - General Admit Date: 04/14/21 Procedure Date: 04/18/21 Planned Procedure: 1. Diagnostic laparoscopy 2. Laparoscopic cholecystectomy 3. Laparoscopic assisted intraoperative cholangiogram 4. Laparoscopic liver biopsy 5. Other indicated procedures Pre-Op Diagnosis: Chronic cholecystitis; abdominal pain; positive HIDA scan Procedure Performed: 1. Diagnostic laparoscopy 2. Laparoscopic cholecystectomy 3. Laparoscopic assisted intraoperative cholangiogram 4. Laparoscopic liver biopsy 5. Laparoscopic adhesiolysis 6. Open umbilical hernia repair Post Op Diagnosis: Same; acute on chronic inflamm; dense adhesions; NL cholangiogram - Procedure Note Primary Surgeon: Luis Carlos Secondary Surgeon: RISHI Anesthesia Provider: Sophie Anesthesia Technique: General ET tube, Local Pathology: 1. Gallbladder 2. Liver biopsies Estimated Blood Loss (mL): 50 Indications: See EMR Findings: 1. Dense acute on chronic inflammatory changes 2. Extensive perigallbladder inflammatory changes 3. Normal cholangiogram 4. Endoloop closure of the cystic duct 5. Hemostatic liver biopsy site Complications: NONE - Other Other Information/Narrative: The patient was brought in the operating room, placed supine on the operating table. They were induced for general endotracheal anesthesia. They were offloaded and padded, both arms tucked. They were prepped and draped in the usual sterile fashion. [place] catheter was placed. Time out was called and agreed to by all in the room. We planned an infraumbilical, circumlinear incision for open Mariam access. The umbilical stalk was divided and revealed an umbilical hernia. This was enlarged to offer access to the abdominal cavity which was without any complication. Plan was to repair the umbilical hernia at the time of closure. No inadvertent hollow viscous injury. And was insufflated to 15 mmHg without any complication. Adhesions noted and were sequentially taken once additional access was accomplished with the following secondary ports: 1. Epigastric 5mm 2. Midclavicular, Right upper quadrant 3. Anterior axillary line, Right subcostal The last port in the right lateral abdomen was placed after sharp adhesiolysis laparoscopically. Case began with adhesiolysis as follows: Trochars were sequentially placed towards affording appropriate abdominal access for laparoscopic adhesiolysis and enterolysis. This was performed in such a way as to maximize exposure and minimize abdominal trauma. We clearly visualized, after appropriate and lengthy laparoscopic adhesiolysis, each trocar placement. Thereafter once appropriate and safe exposure was achieved without any inadvertent injuries or other complicating factors, we proceeded laparoscopically in such a way as to take down the patient's extensive intra-abdominal adhesions using sharp dissection, diligent electrocautery, and appropriate countertraction. Please note for multiple reasons as listed above under brief procedural findings, this patient was best suited to minimal access adhesiolysis towards avoiding open inter vention, reducing the associated risks thereof, maximizing recovery, minimizing postoperative morbidity and associated stigmata, and enhancing the patient's convalescence towards assuring safe and expeditious ushering of patient into the next step of therapeutic intervention which was crucial in overall plan of care. This proceeded without any untoward complications, and without any inadvertent injuries or other adverse effect events. The abdomen was inspected and findings are as noted above. The table was placed in reverse Trendelenburg position with the right side up. Filmy adhesions between gallbladder & omentum, duodenum/transverse colon were lysed sharply. The dome of gallbladder was grasped with a grasper and retracted over the dome of the liver. The infundibulum was also grasped with an atraumatic grasper and retracted toward right lower quadrant. This maneuver exposed Calot's triangle. Please note the gall bladder appeared grossly inflamed, confirmed suspected diagnosis of acute on chronic cholecystitis. The peritoneum overlying the gallbladder infundibulum was then incised and the cystic duct and cystic artery were both identified and circumferentially dissected. A critical view of safety was established at this time, and included all of the followin. The hepatocystic triangle was clear of fat and fibrous tissue. 2. The lower one third of the gallbladder was from the liver to expose the cystic plate. 3. Only two structures were seen entering the gallbladder, which was documented by photography. The cystic artery was then doubly ligated (clip) and divided close to the gallbladder. We then began to carefully dissect and skeletonized the cystic duct. Ultimately we clipped doubly close to the neck of the gallbladder distal from its takeoff at the common bile duct. We performed a small cystostomy at the level of the mid cystic duct and proceeded to place a ureteral catheter through this. We thereafter placed a clamp and after irrigating with saline proceeded to perform cholangiography with 50-50 mix of contrast dye. The second run which was saved into the medical record showed opacification of both the left and right intrahepatic ductal draining systems, and intact common bile duct which clearly drained unobstructed into the duodenum which was opacified as well. With this complete we doubly ligated with Endoloops PDS without any complication. The gallbladder was then dissected from surrounding peritoneal attachments by electrocautery. Again, dense adhesions for acute on chronic cholecystitis necessitated approaching this cautiously. Hemostasis was checked and gallbladder and contained bile were removed using an endoscopic retrieval bag placed through the umbilical port. Secondary to the inflammatory changes this part of the procedure was exceedingly complicated with dense chronic adhesions. Hemostasis was achieved with Bovie electrocautery and Surgicel. Please note that any ductal stones at the level of the cystic duct were ``milked back into the gall bladder prior to ligating and dividing the duct. Secondary to the patient's abnormal liver function test multiple passes were taken with Jl-Cut laparoscopic core needle biopsy for pathology. This was performed through one of the trocar sites. Hemostasis was achieved with electrocautery. The abdomen was aspirated and irrigated clear with no complication. The gallbladder was passed off the table as a specimen. The gallbladder fossa was copiously irrigated with saline and hemostasis was obtained with electrocautery. There was no evidence of bleeding of the gallbladder fossa or cystic artery or leakage of the bile from the cystic duct stump. The Secondary 5 mm ports were removed under direct vision. We thereafter removed the umbilical access, Mariam port and closed the umbilical hernia as follows. Several [id number]-Vicryl sutures placed at the umbilical closure, re- approximating the hernia defect adequately. The umbilical stalk was performed for umbilicoplasty. The wound was irrigated, and all the skin incisions were reapproximated with skin fabricio. All counts for sponges, needles, and instruments were correct at the conclusion of this operative case. All incisions were injected with a total of with 0.5% Marcaine. The wounds were dressed dermabond. Patient was taken extubated to the PACU in stable. Please note that voice recognition software was used to transcribe this note and inadvertent errors might persist in spite of review and editing. I am obliged to you for your attention. I am thankful to you for allowing me to participate with you in this care of this patient.
--- NOTE | 2021-04-18 15:33 | ANESTHESIA POST OP EVALUATION ---
Anesthesia Post Eval - Post Anesthesia Eval Vitals: Last Vital Signs Temp 36.6 C 04/18/21 15:20 Pulse 71 04/18/21 15:20 Resp 26 H 04/18/21 15:20 BP 167/90 H 04/18/21 15:20 Pulse Ox 100 04/18/21 15:20 CV Function Including HR & BP: Stable Pain Control: Satisfactory Nausea & Vomiting: Negative Mental Status: Baseline Respiratory Status: Airway Patent Hydration Status: Satisfactory Anesthesia Complications: None
--- NOTE | 2021-04-18 16:00 | PROVIDER PROGRESS NOTE ---
Progress Note BRIEF Operative Report - General Admit Date: 04/14/21 Procedure Date: 04/18/21 Planned Procedure: 1. Diagnostic laparoscopy 2. Laparoscopic cholecystectomy 3. Laparoscopic assisted intraoperative cholangiogram 4. Laparoscopic liver biopsy 5. Other indicated procedures Pre-Op Diagnosis: Chronic cholecystitis; abdominal pain; positive HIDA scan Procedure Performed: 1. Diagnostic laparoscopy 2. Laparoscopic cholecystectomy 3. Laparoscopic assisted intraoperative cholangiogram 4. Laparoscopic liver biopsy 5. Laparoscopic adhesiolysis 6. Open umbilical hernia repair Post Op Diagnosis: Same; acute on chronic inflamm; dense adhesions; NL cholangiogram - Procedure Note Primary Surgeon: Luis Carlos Secondary Surgeon: RISHI Anesthesia Provider: Olya/Kelsey Anesthesia Technique: General ET tube, Local Pathology: 1. Gallbladder 2. Liver biopsies Estimated Blood Loss (mL): 50 Indications: See EMR Findings: 1. Dense acute on chronic inflammatory changes 2. Extensive perigallbladder inflammatory changes 3. Normal cholangiogram 4. Endoloop closure of the cystic duct 5. Hemostatic liver biopsy site Complications: NONE
--- NOTE | 2021-04-18 16:10 | ANESTHESIA POST OP EVALUATION ---
Anesthesia Post Eval - Post Anesthesia Eval Vitals: Last Vital Signs Temp 36.3 C L 04/18/21 15:52 Pulse 67 04/18/21 15:52 Resp 23 04/18/21 15:52 BP 164/98 H 04/18/21 15:52 Pulse Ox 98 04/18/21 15:52 CV Function Including HR & BP: Stable Pain Control: Satisfactory Nausea & Vomiting: Negative Mental Status: Baseline Respiratory Status: Airway Patent Hydration Status: Satisfactory Anesthesia Complications: None
[2021-04-18] MEDS: HYDROmorphone 0.5 MG/0.5 ML SYRINGE IVP PRN (16:27)
--- NOTE | 2021-04-18 17:09 | XRAY Report ---
PROCEDURE: OR C-Arm Procedure INDICATIONS: GALLSTONES TECHNIQUE: 2 intraoperative fluoroscopic images of right upper quadrant abdomen were obtained. COMPARISON: None. FINDINGS: Intraoperative fluoroscopic images shows surgical clips in gallbladder fossa with normal contrast opa cification of hepatic duct and common bile duct. Subtle intraluminal filling defect is noted in the d istal common bile the on the first image. Subsequent image shows no intraluminal filling defect. IMPRESSION: Intraoperative cholangiogram shows possible common bile duct stone with subsequent stone removal, sug gest clinical with surgical notes. Reviewed by: Keyur Morris MD on 04/18/2021 5:08 PM PDT Approved by: Keyur Morris MD on 04/18/2021 5:08 PM PDT Station ID: [id number]
[2021-04-18] MEDS ORDERED: oxyCODONE 5 MG TABLET PO PRN (17:25)
[2021-04-18] MEDS ORDERED: hydrALAZINE INJ 20 MG/ML VIAL IVP PRN (17:32)
[2021-04-18] MEDS: KETOROLAC 30 MG/ML VIAL IVP SCH ×2 (17:55→23:35)
[2021-04-18] MEDS: ACETAMINOPHEN 1,000 MG/100 ML 100 ML IV SCH ×2 (17:55→23:36)
[2021-04-19] MEDS: PIPERACILLIN/TAZOBACTAM 3.375 GM in SODIUM CHLORIDE 0.9% MINIBAG 100 ML IV SCH ×3 (01:35→13:08)
[2021-04-19] MEDS: D5NS W/20 MEQ KCL 1,000 ML IV SCH ×3 (06:10→13:33)
[2021-04-19] MEDS: METOCLOPRAMIDE 10 MG/2 ML VIAL IVP SCH ×2 (06:11→13:02)
[2021-04-19] MEDS: KETOROLAC 30 MG/ML VIAL IVP SCH ×2 (06:11→13:02)
[2021-04-19] MEDS: PANTOPRAZOLE 40 MG VIAL IVP SCH (06:11)
[2021-04-19] MEDS: ACETAMINOPHEN 1,000 MG/100 ML 100 ML IV SCH ×2 (06:11→13:01)
[2021-04-19] MEDS: LEVOTHYROXINE 100 MCG TABLET PO SCH (06:11)
[2021-04-19] MEDS: methocarbamoL 500 MG TABLET PO SCH ×2 (06:11→13:07)
[2021-04-19 07:38] LABS: BASOPHILS % (AUTO) 0.3 %; EOSINOPHILS % (AUTO) 0.1 %; HCT - HEMATOCRIT 40.3 % (42.0-52.0); HGB - HEMOGLOBIN 12.9 g/dL (14.0-18.0); LYMPHOCYTES # (AUTO) 1.4 10^3/uL (1.5-3.5); LYMPHOCYTES % (AUTO) 11.7 %; MEAN CORPUSCULAR VOLUME 84.5 fL (80.0-94.0); MEAN PLATELET VOLUME 10.6 fL (7.4-11.4); MONOCYTES # (AUTO) 0.9 10^3/uL (0.0-1.0); MONOCYTES % (AUTO) 7.3 %; NEUTROPHILS # (AUTO) 9.4 10^3/uL (1.5-6.6); PLT - PLATELET COUNT 272 10^3/uL (130-450); RED BLOOD COUNT 4.77 10^6/uL (4.70-6.10); RED CELL DISTRIBUTION WIDTH 13.2 % (12.0-15.0); WHITE BLOOD COUNT 11.7 x10^3/uL (4.8-10.8)
[2021-04-19 07:48] LABS: ALBUMIN 2.8 g/dL (3.2-5.5); BILIRUBIN,TOTAL 1.3 mg/dL (0.2-1.0); CALCIUM 8.3 mg/dL (8.5-10.3); TOTAL PROTEIN 5.7 g/dL (6.7-8.2)
[2021-04-19] MEDS: polyethylene glycoL 3350 17 GM PACKET PO SCH (07:59)
[2021-04-19] MEDS: ATORVASTATIN 10 MG TABLET PO SCH (08:00)
[2021-04-19] MEDS: DOXAZOSIN 1 MG TABLET PO SCH (08:00)
[2021-04-19] MEDS: LOSARTAN 50 MG TABLET PO SCH (08:00)
[2021-04-19] MEDS: HEPARIN 5,000 UNIT/ML VIAL SUBQ SCH (08:01)
[2021-04-19] MEDS: METOPROLOL TARTRATE 25 MG TABLET PO SCH (08:03)
[2021-04-19 11:41] VITALS: BP 182/88
[2021-04-19] MEDS: SODIUM CHLORIDE FLUSH 0.9% 10 ML SYRINGE IVP SCH (13:03)
--- NOTE | 2021-04-19 13:28 | Discharge Plan ---
Discharge Plan Problem Reviewed?: Yes Disposition: Home, Self Care Condition: Good Prescriptions: oxyCODONE [Roxicodone] 5 mg PO Q4HR PRN #30 tablet PRN Reason: Pain methocarbamoL [Robaxin] 500 mg PO Q6HR PRN #50 tablet PRN Reason: Spasms Diet: Soft Activity Restrictions: Wt Bearing as Tolerated Shower Restrictions: No Driving Restrictions: Yes (No driving while takeing narcotics) Instruction Topics: Cholecystectomy Laparoscopic Assessment: Impression/Plan 1. Oxycodone every 4-6 hours as needed for pain 2. Take Colace twice daily and MiraLAX daily as per above while taking narcotics and if no bowel function 3. Avoid nonsteroidals and continue with acetaminophen 650 mg every 6 hours not to exceed 4 g daily 4. Patient to return for OR wound VAC change and debridement and additional partial closure. This is April 22 at 1:30 PM. 5. Patient to call or return to the hospital through ER for fevers, nausea, vomiting, abdominal pain or any other worrisome symptoms or concerns. 6. Patient not to return to any work capacity until seen in clinic. 7. No heavy lifting, pushing, or pulling. Stairs are allowed, no strenuous/exertional activities. 5-10lbs weight carrying limit (i.e. gallon of milk) 8. Call or proceed to clinic/ER for fevers, severe pain, nausea, vomiting, inability to pass flatus/stool, bleeding, wound redness/discharge, weakness, excessively loose stool/diarrhea, or for any other reasonably worrisome symptom or concern. 9. Soft diet, no raw vegetables, avoid high fiber foods. 10. No driving while taking narcotic pain medications. 11. Patient not allowed to drive self today or within 24 hours of surgery. No Smoking: If you smoke, Please STOP! Call for help. Follow-up with: Janie Butts MD [Primary Care Provider] - Jamar Aldridge MD [Provider Admit Priv/Credential] - 1-2 Days
--- NOTE | 2021-04-19 13:50 | DISCHARGE SUMMARY ---
"Discharge Summary Admit Date: 04/13/21 Discharge Date: 04/19/21 Discharging Provider: Luis Carlos Code Status: Attempt Resuscitation Condition at Discharge: Good Discharge Disposition: 01 Home, Self Care - DIAGNOSES Admission Diagnoses: 1. Obstructive jaundice - Resolved 2. Acute cholecystitis - TREATE/RESECTED 3. Choledocholithiasis - RESOLVED 4. Abdominal pain, chronic recurrent - RESOLVED 5. Obesity - STABLE 6. Biliary colic - TREATED 7. Comorbid states to include hypertension - STABLE - HPI History of Present Illness: 65-year-old male presenting for abdominal pain and jaundice. Patient evaluated last Wednesday and returns again yesterday with abdominal discomfort associated nausea.. No significant family history. Notable past surgical history to include none. Patient denies change in bowel function, denies bleeding per rectum, and also denies reflux associated symptoms. Patient does not use tobacco. Patient has a history of alcohol use but denies any associated abuse. Patient has appropriate exercise tolerance to 1 flight of stairs. No history of heart attack or stroke. Patient takes no systemic anticoagulation. Endoscopic history includes age-appropriate colonoscopy. - CONSULTS | PROCEDURES Consultations: None Procedures: Esophagogastroduodenoscopy with the following findings: 1. Distal duodenum normal. No evidence of of duodenitis. Cold forcep biopsy obtained. Hemostatic. The first portion of the duodenum showed some signs of inflammatory changes and possible historic peptic ulcer disease postpyloric. Biopsies taken independently cold forceps. Hemostatic. 2. Antrum without any antritis. Biopsies obtained cold forceps. Hemostatic. Patent pylorus. 3. Retroflexion with no significant hiatal herniation. 4. No diffuse gastritis or gastropathy. No polyps. No ulcerations. 5. GE junction with mild inflammatory changes and irregular Z-line. Biopsied. 6. Distal esophageal biopsies above the Z-line to rule out metaplasia OPERATIVE PROCEDURE: Pre-Op Diagnosis: Chronic cholecystitis; abdominal pain; positive HIDA scan Procedure Performed: 1. Diagnostic laparoscopy 2. Laparoscopic cholecystectomy 3. Laparoscopic assisted intraoperative cholangiogram 4. Laparoscopic liver biopsy 5. Laparoscopic adhesiolysis 6. Open umbilical hernia repair Post Op Diagnosis: Same; acute on chronic inflamm; dense adhesions; NL ch olangiogram - HOSPITAL COURSE Hospital Course: 65-year-old male who presents with signs and symptoms consistent with cholecystitis, with abdominal pain obstructive jaundice consistent with Choledocholithiasis. Although imaging is without any stones, we will proceed with MRCP to confirm. Would consider urgent referral for ERCP and return for cholecystectomy upon confirmation of diagnosis. (1) GI - IVF, bowel rest. GI ppx. Anticipate ileus. Opiate sparring analgesia. (2) SURGERY - consider cholecystectomy following ERCP; awaiting MRCP for confirmation of diagnosis. (3) Renal/Lytes - continue IVF. Renal indices within normal limits. (4) Respiratory - O2 as necessary. Continue IS. chest XR. (5) Heme - Will continue with DVT ppx. H/H stable . (6) Cardiovascular - HD acceptable. (7) Neuro - Opiate sparring analgesia. Antispasmodics with Robaxin. Toradol. Neuropathic agents. (8) Infectious disease - continue antibiotics Impression CT abdomen pelvis: 1. Distended stomach. There is mild gastric antral thickening. This finding suggest gastric outlet obstruction. Recommend clinical correlation. If clinically indicated EGD may be helpful. 2. Diverticulosis without acute diverticulitis. 3. A 1.5 cm low-density cortical nodule in the left kidney. Statistically the most likely a cyst. Ultrasound could be helpful for further characterization. 4. Bilateral subpleural septal thickening and 5 pulmonary fibrosis is visualized lower lobes Ultrasound abdomen impression: 1. Biliary ductal dilatation seen measuring 13 mm 2. If clinically appropriate, please consider dedicated MRCP for further evaluation. 3. Prominent gallbladder with minimal gallbladder wall thickening. No additional sonographic signs of cholecystitis are seen. 4. Increased liver echogenicity. Nonspecific. Most commonly attributed to fatty infiltration. Extensive work-up performed as listed after admission with bowel rest and IV antibiotics. Initial imaging concerning for choledocholithiasis and cholecystitis however currently HIDA only points to acute on chronic cholecystitis with potential for liver dysfunction. MRCP without any choledocholithiasis. Imaging concerning for duodenal/distal gastric thickening. Patient underwent bowel rest. IV antibiotics were also continued. The patient underwent upper endoscopy without any concerning features. Hepatitis panel was within normal limits. Given persistent elevated bilirubin, resolving LFTs, this was felt to be secondary to a passed stone and thus we offered the patient cholecystectomy with intraoperative cholangiogram to address his constellation of symptoms. Moreover having ruled out any other occult pathology most notably duodenal malignancy and/or other complication, and acute biliary obstruction with a normal MRCP, there was no contraindication at this time to proceeding with laparoscopic cholecystectomy. Underwent operative intervention as listed elsewhere. Acute inflammatory changes noted. No complication. Critical view of safety achieved. No leak or spillage. Patient underwent operative intervention as listed in the electronic medical record. Tolerated procedure well for which there was no complication. Postoperatively the patient was managed for postoperative analgesia and resumption of bowel function. Patient had successfully passed trial of void. Tolerated oral intake without any complication. Denied nausea and denied vomiting. Was advanced for diet without any complication. Patient was maintained on antibiotics during the hospital stay. Discharge instructions given. Analgesia with oxycodone provided at time of discharge. Patient plan for follow-up and will be notified of pathology once returned. Please note that voice recognition software was used to transcribe this note and inadvertent errors might persist in spite of review and editing. I am obliged to you for your attention. I am thankful to you for allowing me to participate with you in this care of this patient. - ALLERGIES Allergies/Adverse Reactions: Allergies Allergy/AdvReac Type Severity Reaction Status Date / Time No Known Drug Allergies Allergy Verified 04/20/21 12:52 - MEDICATIONS Home Medications: Ambulatory Orders Medication Instructions Recorded Confirmed Levothyroxine Sodium 150 mcg PO QDAC 12/27/16 04/14/21 Simvastatin 20 mg PO QPM 12/27/16 04/14/21 Doxazosin [Cardura] 2 mg PO QPM 10/17/20 04/14/21 Omeprazole [PriLOSEC] 20 mg PO BID #60 04/08/21 04/14/21 Losartan Potassium 12.5 mg PO BID 04/14/21 04/14/21 Zolpidem Tartrate [Ambien Cr] 12.5 mg PO QPM PRN 04/14/21 04/14/21 Losartan [Cozaar] 25 mg PO BID tablet 04/19/21 Metoprolol Tartrate [Lopressor] 25 mg PO BID tablet 04/19/21 methocarbamoL [Robaxin] 500 mg PO Q6HR PRN #50 tablet 04/19/21 oxyCODONE [Roxicodone] 5 mg PO Q4HR PRN #30 tablet 04/19/21 polyethylene glycoL 3350 [Miralax] 17 gm PO DAILY packet 04/19/21 - PHYSICAL EXAM AT DISCHARGE Physical Exam Other/Comments: General Appearance: positive: No acute distress Eyes Bilateral: positive: Normal inspection ENT: positive: ENT inspection nml Neck: positive: Nml inspection Respiratory: positive: Chest non-tender, No respiratory distress, Breath sounds nml. negative: Wheezes, Rales, Rhonchi Cardiovascular: positive: Regular rate & rhythm Abdomen: positive: No distention, Other. negative: Guarding, Rebound Extremities: positive: Non-tender, Full ROM, Nml appearance Neurologic/Psychiatric: positive: Oriented x3, CN's nml (2-12) Abdominal Exam: Inspection - Erythema none; Scars trocars well healed Auscultation -normoactive bowel sounds Palpation - Hernias none; Fluctuance none; Induration none; Scar N/A - LABS Result Diagrams: 04/19/21 07:16 04/19/21 07:16 - FOLLOW UP Follow Up: 10 days - TIME SPENT Time Spent in Discharge (Minutes): 90"
== END 2021-04-19 15:15 | disposition home or self-care (01) | DRG 419 ==
LOC: EDUNIT# → EDBD → ED 19:24 → SUPCPDRO 19:24 → MS3 04-14 02:26
PROVIDERS: ADMIT Surgery; ATTEND Surgery
PROC: 0DB98ZX Excision of Duodenum, Via Natural or Artificial Opening Endoscopic, Diagnostic (ICD-10-PCS; 2021-04-16)
PROC: 0DB78ZX Excision of Stomach, Pylorus, Via Natural or Artificial Opening Endoscopic, Diagnostic (ICD-10-PCS; 2021-04-16)
PROC: 0DB38ZX Excision of Lower Esophagus, Via Natural or Artificial Opening Endoscopic, Diagnostic (ICD-10-PCS; 2021-04-16)
PROC: 0DB48ZX Excision of Esophagogastric Junction, Via Natural or Artificial Opening Endoscopic, Diagnostic (ICD-10-PCS; 2021-04-16)
PROC: 0FB04ZX Excision of Liver, Percutaneous Endoscopic Approach, Diagnostic (ICD-10-PCS; 2021-04-18)
PROC: BF130ZZ Fluoroscopy of Gallbladder and Bile Ducts using High Osmolar Contrast (ICD-10-PCS; 2021-04-18)
PROC: 0FT44ZZ Resection of Gallbladder, Percutaneous Endoscopic Approach (ICD-10-PCS; principal; 2021-04-18 11:45)
DX: K80.31 Calculus of bile duct with cholangitis, unspecified, with obstruction (principal); Z20.822 Contact with and (suspected) exposure to COVID-19; K80.67 Calculus of gallbladder and bile duct with acute and chronic cholecystitis with obstruction; E66.9 Obesity, unspecified; Z68.33 Body mass index [BMI] 33.0-33.9, adult; I10 Essential (primary) hypertension; K57.30 Diverticulosis of large intestine without perforation or abscess without bleeding; Z95.1 Presence of aortocoronary bypass graft; I25.10 Atherosclerotic heart disease of native coronary artery without angina pectoris; E03.9 Hypothyroidism, unspecified; K21.9 Gastro-esophageal reflux disease without esophagitis; E78.00 Pure hypercholesterolemia, unspecified; R94.5 Abnormal results of liver function studies
CPT/HCPCS: 36415; 74177; 74183; 76705; 78226; 80053; 80074; 81003; 83690; 85025; 87631; 96374; 96376; 99285; A9270; A9585; C1758; J0131; J1170; J1650; J2765; J7120; Q9961; Q9967; 0202U; 81001; 87086

== ENCOUNTER 2021-04-20 12:38 | Emergency (ER) | payer MEDICARE, OTHER ==
[2021-04-20 12:52] VITALS: BP 154/90
--- NOTE | 2021-04-20 13:19 | ED Physician Documentation ---
History of Present Illness - Stated complaint Stated Complaint: POST OP CONCERN - Chief complaint Chief Complaint: Abd Pain - History obtained from History obtained from: Patient - History of Present Illness Timing: Today Pain level max: 0 Pain level now: 0 - Additonal information Additional information: 65-year-old male status post cholecystectomy. Today he was in the shower when he noticed bleeding from the umbilical port incision. Bleeding has currently stopped. Nothing makes it better or worse. No abdominal pain. No fevers. Was told to come in if he had bleeding. Review of Systems Constitutional: denies: Fever, Chills GI: denies: Vomiting PD PAST MEDICAL HISTORY - Past Medical History Cardiovascular: Hypertension, High cholesterol, Coronary artery disease, Other (Hx of CABG in 2017) Respiratory: None, Sleep apnea (undiagnosed) Neuro: None Endocrine/Autoimmune: HyPOthyroidism GI: GERD : None, Nocturia HEENT: None Psych: None, Schizophrenia Musculoskeletal: Osteoarthritis Derm: None - Past Surgical History Past Surgical History: Yes Ortho: Carpal Tunnel surgery Cardiovascular: CABG HEENT: Tonsil/Adenoidectomy - Present Medications Home Medications: Ambulatory Orders Medication Instructions Recorded Confirmed Levothyroxine Sodium 150 mcg PO QDAC 12/27/16 04/14/21 Simvastatin 20 mg PO QPM 12/27/16 04/14/21 Doxazosin [Cardura] 2 mg PO QPM 10/17/20 04/14/21 Omeprazole [PriLOSEC] 20 mg PO BID #60 04/08/21 04/14/21 Losartan Potassium 12.5 mg PO BID 04/14/21 04/14/21 Zolpidem Tartrate [Ambien Cr] 12.5 mg PO QPM PRN 04/14/21 04/14/21 Losartan [Cozaar] 25 mg PO BID tablet 04/19/21 Metoprolol Tartrate [Lopressor] 25 mg PO BID tablet 04/19/21 methocarbamoL [Robaxin] 500 mg PO Q6HR PRN #50 tablet 04/19/21 oxyCODONE [Roxicodone] 5 mg PO Q4HR PRN #30 tablet 04/19/21 polyethylene glycoL 3350 [Miralax] 17 gm PO DAILY packet 04/19/21 - Allergies Allergies/Adverse Reactions: Allergies Allergy/AdvReac Type Severity Reaction Status Date / Time No Known Drug Allergies Allergy Verified 04/20/21 12:52 - Social History Does the pt smoke?: No Smoking Status: Never smoker Does the pt drink ETOH?: Yes Does the pt have substance abuse?: No - Immunizations Immunizations are current?: No - POLST Patient has POLST: No PD ED PE NORMAL - Vitals Vital signs reviewed: Yes - General General: Alert and oriented X 3, No acute distress - Abdomen Abdomen: Soft, Non tender, Non distended, Other (Incisions are clean dry and intact with the exception of the umbilical incision. This incision is intact, but there is a small amount of dried blood. No evidence of infection.) - Derm Derm: Warm and dry - Neuro Neuro: Alert and oriented X 3 - Psych Psych: Normal mood, Normal affect Results - Vitals Vitals: Vital Signs - 24 hr 04/20/21 12:48 Temperature 36.8 C Heart Rate 80 Respiratory 16 Rate Blood Pressure 154/90 H O2 Saturation 95 Oxygen O2 Source Room air PD MEDICAL DECISION MAKING - ED course Complexity details: reviewed old records, considered differential, d/w patient ED course: Patient with likely a small postoperative hematoma that burst this morning. No active bleeding. No dehiscence or wound that would require repair at this time. A new dressing was applied. We will have him follow-up with his surgeon for further care. Patient counseled regarding signs and symptoms for which I believe and urgent re-evaluation would be necessary. Patient with good understanding of and agreement to plan and is comfortable going home at this time This document was made in part using voice recognition software. While efforts are made to proofread this document, sound alike and grammatical errors may occur. Departure - Departure Disposition: 01 Home, Self Care Clinical Impression: Postoperative wound hematoma Condition: Good Instructions: ED Wound Check Post Op Bleeding Follow-Up: Janie Butts MD [Primary Care Provider] - Jamar Aldridge MD [Provider Admit Priv/Credential] - Within 1 week Comments: Keep the wound clean. Return if you worsen. Follow-up with Dr. Aldridge as scheduled for further care.
== END 2021-04-20 13:26 | disposition home or self-care (01) ==
LOC: ED 12:38
DX: L76.22 Postprocedural hemorrhage of skin and subcutaneous tissue following other procedure (principal); I10 Essential (primary) hypertension
CPT/HCPCS: 99282; 99283

== ENCOUNTER 2021-04-24 17:02 | Outpatient (CLI) | payer MEDICARE, OTHER ==
[2021-04-24 17:27] LABS: ALBUMIN 3.5 g/dL (3.2-5.5); BILIRUBIN,TOTAL 1.1 mg/dL (0.2-1.0); CREATININE 0.9 mg/dL (0.6-1.2); POTASSIUM 4.2 mmol/L (3.5-5.0)
== END 2021-04-24 17:03 | disposition home or self-care (01) ==
LOC: LAB 17:02
PROVIDERS: ATTEND Surgery
DX: K80.50 Calculus of bile duct without cholangitis or cholecystitis without obstruction (principal)
CPT/HCPCS: 36415; 80053

== ENCOUNTER 2021-11-13 19:31 | Outpatient (CLI) | payer MEDICARE, OTHER | END 2021-11-13 19:32 | disposition critical access hospital (66) | LOC: EMS 19:31 | DX: R10.13 Epigastric pain (principal) | CPT/HCPCS: A0425; A0429 ==

== ENCOUNTER 2021-11-13 19:39 | Emergency (ER) | payer MEDICARE, OTHER ==
--- NOTE | 2021-11-13 20:08 | ED Physician Documentation ---
PD HPI ABD PAIN - Stated complaint Stated Complaint: ABD PAIN/EPIGASTRIC - Chief complaint Chief Complaint: Abd Pain - History obtained from History obtained from: Patient, EMS - History of Present Illness Timing - details: Gradual onset Pain level max: 6 Pain level now: 0 Quality: Other (Burning) Location: Epigastric Radiation: No: Chest, , Lower back, Left flank, Left shoulder, Right flank, Right shoulder, Upper back Improved by: Meds Worsened by: Eating Associated symptoms: No: Fever, Nausea, Vomiting, Hematemesis, Diarrhea, Constipation, Melena, Hematochezia, Dysuria, Hematuria, Chest pain, Dizzy, Near syncope / syncope, Loss of appetite, Weight loss, Vaginal bleeding, Vaginal dc, Testicular pain - Additional information Additional information: Patient is a 66-year-old male with epigastric pain that began about 2 hours after eating tonight. He states that this is a fairly usual occurrence for him and he is being worked up by GI for this. He is awaiting endoscopy. He states that the symptoms lasted for about 30 to 40 minutes tonight which is slightly longer than usual. He is on omeprazole at home. Had a cholecystectomy in April 2021. He describes the pain as burning and in the epigastric region. He does have a history of a coronary artery bypass graft in 2017. He states he has not had any heart issues since that time.Worse with eating and drinking, resolved with Tums Review of Systems Ten Systems: 10 systems reviewed and negative Constitutional: denies: Fever, Chills Throat: denies: Sore throat Cardiac: denies: Palpitations Respiratory: denies: Cough Skin: denies: Rash Musculoskeletal: denies: Neck pain, Back pain Neurologic: denies: Headache PD PAST MEDICAL HISTORY - Past Medical History Cardiovascular: Hypertension, High cholesterol, Coronary artery disease, Other (Hx of CABG in 2017) Respiratory: None, Sleep apnea (undiagnosed) Neuro: None Endocrine/Autoimmune: HyPOthyroidism GI: GERD : None, Nocturia HEENT: None Psych: None, Schizophrenia Musculoskeletal: Osteoarthritis Derm: None - Past Surgical History Past Surgical History: Yes Ortho: Carpal Tunnel surgery Cardiovascular: CABG HEENT: Tonsil/Adenoidectomy - Present Medications Home Medications: Ambulatory Orders Medication Instructions Recorded Confirmed Levothyroxine Sodium 150 mcg PO QDAC 12/27/16 04/14/21 Simvastatin 20 mg PO QPM 12/27/16 04/14/21 Doxazosin [Cardura] 2 mg PO QPM 10/17/20 04/14/21 Omeprazole [PriLOSEC] 20 mg PO BID #60 04/08/21 04/14/21 Losartan Potassium 12.5 mg PO BID 04/14/21 04/14/21 Zolpidem Tartrate [Ambien Cr] 12.5 mg PO QPM PRN 04/14/21 04/14/21 Losartan [Cozaar] 25 mg PO BID tablet 04/19/21 Metoprolol Tartrate [Lopressor] 25 mg PO BID tablet 04/19/21 polyethylene glycoL 3350 [Miralax] 17 gm PO DAILY packet 04/19/21 Doxazosin Mesylate [Cardura] 0.5 tab 11/13/21 Famotidine [Pepcid] 20 mg PO BID #60 tablet 11/13/21 Levothyroxine [Synthroid] 1.5 tab 11/13/21 Montelukast [Singulair] 11/13/21 Sucralfate [Carafate] 1 gm PO ACHS #60 tablet 11/13/21 - Allergies Allergies/Adverse Reactions: Allergies Allergy/AdvReac Type Severity Reaction Status Date / Time No Known Drug Allergies Allergy Verified 04/20/21 12:52 - Social History Does the pt smoke?: No Smoking Status: Never smoker Does the pt drink ETOH?: Yes Does the pt have substance abuse?: No - Immunizations Immunizations are current?: No - POLST Patient has POLST: No PD ED PE NORMAL - Vitals Vital signs reviewed: Yes - General General: Alert and oriented X 3, No acute distress, Well developed/nourished - HEENT HEENT: PERRL, Moist mucous membranes - Neck Neck: Supple, no meningeal sign - Cardiac Cardiac: RRR, Strong equal pulses - Respiratory Respiratory: No respiratory distress, Clear bilaterally - Abdomen Abdomen: Soft, Non tender, Non distended - Derm Derm: Warm and dry - Extremities Extremities: No edema - Neuro Neuro: Alert and oriented X 3 - Psych Psych: Normal mood, Normal affect Results - Vitals Vitals: Vital Signs - 24 hr 11/13/21 11/13/21 19:54 20:22 Temperature 36.8 C Heart Rate 60 63 Respiratory 18 12 Rate Blood Pressure 150/90 H 116/76 O2 Saturation 100 96 Oxygen O2 Source Room air - EKG (time done) 2002 Rate: Rate (enter#) (60) Rhythm: NSR [place]: Normal Intervals: Normal IA QRS: Normal Ischemia: Other (flat t waves) - Labs Labs: Laboratory Tests 11/13/21 11/13/21 11/13/21 20:16 20:16 20:16 WBC 6.6 RBC 5.25 Hgb 14.8 Hct 44.1 MCV 84.0 MCH 28.2 MCHC 33.6 RDW 12.7 Plt Count 191 MPV 11.6 H Neut # (Auto) 4.2 Lymph # (Auto) 1.8 [place] # (Auto) 0.5 Eos # (Auto) 0.1 Baso # (Auto) 0.0 Absolute Nucleated RBC 0.00 Nucleated RBC % 0.0 Sodium 137 Potassium 4.0 Chloride 103 Carbon Dioxide 24 Anion Gap 10.0 BUN 16 Creatinine 1.1 Estimated GFR (MDRD) 67 L Glucose 134 H Calcium 9.1 Total Bilirubin 1.9 H AST 60 H ALT 52 Alkaline Phosphatase 68 Troponin I High Sens 6.4 Total Protein 6.9 Albumin 4.1 Globulin 2.8 Albumin/Globulin Ratio 1.5 Lipase 23 - Rads (name of study) cxr Radiology: Final report received, EMP read contemporaneously, See rad report ( No acute cardiopulmonary abnormality. ) PD MEDICAL DECISION MAKING - ED course Complexity details: reviewed results, re-evaluated patient, considered differential (No ST elevation AL, no aortic dissection, no PE, no tension pneumothorax, no aortic aneurysm), d/w patient ED course: 66-year-old male with epigastric abdominal pain that occurs fairly regularly about 2 to 3 hours after eating. Concern for gastritis. His symptoms resolved with Tums prior to arrival. He is on omeprazole already, we will add Carafate and Pepcid to see if this alleviates his symptoms further. He has an appointment with his GI doctor to have an endoscopy scheduled, however because of Covid elective procedures are currently postponed. No evidence of acute coronary syndrome tonight. Patient does not wish to stay for a second troponin. Patient counseled regarding signs and symptoms for which I believe and urgent re-evaluation would be necessary. Patient with good understanding of and agreement to plan and is comfortable going home at this time This document was made in part using voice recognition software. While efforts are made to proofread this document, sound alike and grammatical errors may occur. Departure - Departure Disposition: 01 Home, Self Care Clinical Impression: Abdominal pain Qualifiers: Abdominal location: epigastric Qualified Code(s): R10.13 - Epigastric pain Gastritis Qualifiers: Gastritis type: unspecified gastritis Chronicity: unspecified Gastritis bleeding: without bleeding Qualified Code(s): K29.70 - Gastritis, unspecified, without bleeding Condition: Good Instructions: ED PUD Vs Gastritis Follow-Up: Janie Butts MD [Primary Care Provider] - Within 1 week Prescriptions: Sucralfate [Carafate] 1 gm PO ACHS #60 tablet Famotidine [Pepcid] 20 mg PO BID #60 tablet Comments: Please follow-up with your doctor for further care. Return if you worsen. We will add additional medications to see if this helps to control your symptoms. Please follow-up with your health science instructor for further care. Your prescriptions were sent to [facility] in [place].
[2021-11-13 20:21] LABS: BASOPHILS % (AUTO) 0.3 %; EOSINOPHILS # (AUTO) 0.1 10^3/uL (0.0-0.7); EOSINOPHILS % (AUTO) 1.4 %; HCT - HEMATOCRIT 44.1 % (42.0-52.0); HGB - HEMOGLOBIN 14.8 g/dL (14.0-18.0); LYMPHOCYTES # (AUTO) 1.8 10^3/uL (1.5-3.5); LYMPHOCYTES % (AUTO) 26.7 %; MEAN CORPUSCULAR HEMOGLOBIN 28.2 pg (27.0-31.0); MEAN CORPUSCULAR HGB CONC 33.6 g/dL (32.0-36.0); MEAN PLATELET VOLUME 11.6 fL (7.4-11.4); MONOCYTES # (AUTO) 0.5 10^3/uL (0.0-1.0); MONOCYTES % (AUTO) 7.9 %; NEUTROPHILS # (AUTO) 4.2 10^3/uL (1.5-6.6); NEUTROPHILS % (AUTO) 63.5 %; PLT - PLATELET COUNT 191 10^3/uL (130-450); RED BLOOD COUNT 5.25 10^6/uL (4.70-6.10); RED CELL DISTRIBUTION WIDTH 12.7 % (12.0-15.0); WHITE BLOOD COUNT 6.6 x10^3/uL (4.8-10.8)
[2021-11-13 20:41] LABS: ALBUMIN 4.1 g/dL (3.2-5.5); ALBUMIN/GLOBULIN RATIO 1.5 (1.0-2.2); BILIRUBIN,TOTAL 1.9 mg/dL (0.2-1.0); CALCIUM 9.1 mg/dL (8.5-10.3); CREATININE 1.1 mg/dL (0.6-1.2); TOTAL PROTEIN 6.9 g/dL (6.7-8.2)
--- NOTE | 2021-11-13 21:03 | XRAY Report ---
PROCEDURE: Chest 1 View X-Ray INDICATIONS: Chest Pain TECHNIQUE: One view of the chest was acquired. COMPARISON: 12/27/2016 FINDINGS: Surgical changes and devices: Status post median sternotomy and CABG. Lungs and pleura: No pleural effusions or pneumothorax. Lungs are clear. Mediastinum: Mediastinal contours appear normal. Heart size is normal. Bones and chest wall: No suspicious bony lesions. Overlying soft tissues appear unremarkable. IMPRESSION: No acute cardiopulmonary abnormality. Reviewed by: Sourav Wood on 11/13/2021 9:02 PM [facility] Approved by: Sourav Wood on 11/13/2021 9:02 PM [facility] Station ID: [id number]
[2021-11-13 21:14] VITALS: BP 128/78
== END 2021-11-13 21:14 | disposition home or self-care (01) ==
LOC: EDUNIT# → ED 19:39
DX: K29.70 Gastritis, unspecified, without bleeding (principal); I10 Essential (primary) hypertension; Z95.1 Presence of aortocoronary bypass graft
CPT/HCPCS: 36415; 80053; 83690; 84484; 85025; 93005; 99284

== ENCOUNTER 2024-04-14 02:24 | Outpatient (CLI) | payer MEDICARE, OTHER | END 2024-04-14 23:59 | disposition critical access hospital (66) | LOC: EMS 02:24 | DX: R10.11 Right upper quadrant pain (principal); R10.12 Left upper quadrant pain; R10.811 Right upper quadrant abdominal tenderness; R10.812 Left upper quadrant abdominal tenderness | CPT/HCPCS: A0425; A0427 ==

== ENCOUNTER 2024-04-14 02:44 | Emergency (ER) | payer MEDICARE, OTHER ==
--- NOTE | 2024-04-14 02:55 | ED Physician Documentation ---
PD HPI ABD PAIN - Stated complaint Stated Complaint: ABD PAIN - Chief complaint Chief Complaint: Abd Pain - History obtained from History obtained from: Patient, EMS - Additional information Additional information: 68-year-old male with history of coronary artery disease status post CABG presents by EMS from home for dull midepigastric abdominal pain. Patient was laying in bed when he noticed the pain. It persisted for over an hour and so he decided to call 911. Patient states that he has a history of retained gallstones that had to be "flushed out" even after cholecystectomy, and he is concerned that he may have another stone. He states that his last stone was approximately May 2022. By the time of arrival to the emergency department patient was pain-free. Review of Systems Constitutional: denies: Fever, Chills Respiratory: denies: Dyspnea, Cough, Wheezing GI: reports: Abdominal Pain. denies: Nausea, Vomiting, Constipation, Diarrhea : denies: Dysuria, Frequency, Hesitancy Neurologic: denies: Generalized weakness, Focal weakness, Numbness PD PAST MEDICAL HISTORY - Past Medical History Cardiovascular: Hypertension, High cholesterol, Coronary artery disease, Other Respiratory: None, Sleep apnea Neuro: None Endocrine/Autoimmune: HyPOthyroidism GI: GERD : None, Nocturia HEENT: None Psych: None, Schizophrenia Musculoskeletal: Osteoarthritis Derm: None - Past Surgical History Past Surgical History: Yes General: Cholecystectomy Ortho: Carpal Tunnel surgery Cardiovascular: CABG HEENT: Tonsil/Adenoidectomy - Present Medications Home Medications: Ambulatory Orders Medication Instructions Recorded Confirmed Levothyroxine Sodium 150 mcg PO QDAC 12/27/16 04/14/21 Simvastatin 20 mg PO QPM 12/27/16 04/14/21 Doxazosin [Cardura] 2 mg PO QPM 10/17/20 04/14/21 Omeprazole [PriLOSEC] 20 mg PO BID #60 04/08/21 04/14/21 Losartan Potassium 12.5 mg PO BID 04/14/21 04/14/21 Zolpidem Tartrate [Ambien Cr] 12.5 mg PO QPM PRN 04/14/21 04/14/21 Losartan [Cozaar] 25 mg PO BID tablet 04/19/21 Metoprolol Tartrate [Lopressor] 25 mg PO BID tablet 04/19/21 polyethylene glycoL 3350 [Miralax] 17 gm PO DAILY packet 04/19/21 Doxazosin Mesylate [Cardura] 0.5 tab 11/13/21 Famotidine [Pepcid] 20 mg PO BID #60 tablet 11/13/21 Levothyroxine [Synthroid] 1.5 tab 11/13/21 Montelukast [Singulair] 11/13/21 Sucralfate [Carafate] 1 gm PO ACHS #60 tablet 11/13/21 - Allergies Allergies/Adverse Reactions: Allergies Allergy/AdvReac Type Severity Reaction Status Date / Time No Known Drug Allergies Allergy Verified 04/14/24 02:49 - Social History Does the pt smoke?: No Smoking Status: Never smoker Does the pt drink ETOH?: Yes Does the pt have substance abuse?: No - Immunizations Immunizations are current?: No - POLST Patient has POLST: No PD ED PE NORMAL - Vitals Vital signs reviewed: Yes - General General: Alert and oriented X 3, No acute distress, Well developed/nourished - Neck Neck: Supple, no meningeal sign - Cardiac Cardiac: RRR, Strong equal pulses - Respiratory Respiratory: No respiratory distress, Clear bilaterally - Abdomen Abdomen: Soft, Non tender, Non distended - Derm Derm: Normal color, Warm and dry, No rash - Neuro Neuro: Alert and oriented X 3, water quality assistant 2-12 intact, No motor deficit, Normal speech Results - Vitals Vitals: Vital Signs - 24 hr 04/14/24 04/14/24 04/14/24 02:49 04:32 05:54 Temperature 36.1 C L Heart Rate 58 L 64 60 Respiratory 18 18 16 Rate Blood Pressure 163/93 H 156/90 H 127/78 O2 Saturation 99 99 99 Oxygen O2 Source Room air - Labs Labs: Laboratory Tests 04/14/24 04/14/24 04/14/24 03:03 03:03 03:03 WBC 7.8 RBC 4.76 Hgb 13.3 L Hct 41.4 L MCV 87.0 MCH 27.9 MCHC 32.1 RDW 12.9 Plt Count 148 MPV 11.0 Neut # (Auto) 5.8 Lymph # (Auto) 1.2 L [place] # (Auto) 0.6 Eos # (Auto) 0.2 Baso # (Auto) 0.0 Absolute Nucleated RBC 0.00 Nucleated RBC % 0.0 Sodium 141 Potassium 3.4 L Chloride 109 Carbon Dioxide 22 Anion Gap 10.0 BUN 21 H Creatinine 0.8 Estimated GFR (MDRD) 96 Glucose 105 H Calcium 9.0 Total Bilirubin 1.3 H AST 42 ALT 29 Alkaline Phosphatase 57 Troponin I High Sens 5.3 Total Protein 6.0 L Albumin 3.7 Globulin 2.3 Albumin/Globulin Ratio 1.6 Lipase < 10 L PD Medical Decision Making - ED course Complexity details: reviewed old records, reviewed results, re-evaluated patient, considered differential, d/w patient ED course: Abdominal pain, patient is concerned that he may have a retained stone again. By the time patient arrived to the emergency department he was pain-free. Abdomen is soft, no reproducible tenderness to light or deep palpation in any quadrant of the abdomen. Based on patient's age, history, reported previous retained stones a CT will be ordered along with laboratory work. Laboratory work is reviewed, no leukocytosis. T. bili 1.3, nonspecific, no recent priors for comparison, however in 2021 it was 1.9, so this could be an improvement. Other liver enzymes within normal limits. CT of the abdomen pelvis shows biliary pathology consistent with postcholecystectomy, no evidence of acute obstruction or other abnormalities. Patient reassessed, he has been pain-free since arrival to the emergency department and has had no new episodes of discomfort or pain. Patient and at bedside informed of all lab and imaging findings. No obvious explanation for patient's symptoms, recommended follow-up with general surgery. It appears that patient's surgeon from 2020 may not be currently practicing. A referral was provided in patient's paperwork. Patient stated that he would follow-up with the specialist to talk about potentially doing additional scopes. Departure - Departure Disposition: 01 Home, Self Care Clinical Impression: Abdominal pain Condition: Stable Instructions: Abdominal Pain Follow-Up: Sukhjinder Munoz MD [Provider Admit Priv/Credential] - Comments: Your laboratory work today did not show any significant concerning findings. Your CT showed expected postoperative changes in your gallbladder area without evidence of retained stone. I would recommend following up with the surgeon who performed the procedure if you have return of your pain. Otherwise continue all medications as previously prescribed. Forms: PCP List Discharge Date/Time: 04/14/24 05:55
[2024-04-14 02:58] VITALS: O2SAT 99
[2024-04-14 03:08] LABS: BASOPHILS % (AUTO) 0.4 %; EOSINOPHILS # (AUTO) 0.2 10^3/uL (0.0-0.7); EOSINOPHILS % (AUTO) 2.3 %; HCT - HEMATOCRIT 41.4 % (42.0-52.0); HGB - HEMOGLOBIN 13.3 g/dL (14.0-18.0); LYMPHOCYTES # (AUTO) 1.2 10^3/uL (1.5-3.5); LYMPHOCYTES % (AUTO) 14.8 %; MEAN CORPUSCULAR HEMOGLOBIN 27.9 pg (27.0-31.0); MEAN CORPUSCULAR HGB CONC 32.1 g/dL (32.0-36.0); MONOCYTES # (AUTO) 0.6 10^3/uL (0.0-1.0); MONOCYTES % (AUTO) 7.9 %; NEUTROPHILS # (AUTO) 5.8 10^3/uL (1.5-6.6); NEUTROPHILS % (AUTO) 74.5 %; PLT - PLATELET COUNT 148 10^3/uL (130-450); RED BLOOD COUNT 4.76 10^6/uL (4.70-6.10); RED CELL DISTRIBUTION WIDTH 12.9 % (12.0-15.0); WHITE BLOOD COUNT 7.8 x10^3/uL (4.8-10.8)
[2024-04-14] MEDS ORDERED: iohexoL-300 100 ML VIAL ONE (03:11)
[2024-04-14 03:29] LABS: ALBUMIN 3.7 g/dL (3.2-5.5); ALBUMIN/GLOBULIN RATIO 1.6 (1.0-2.2); ALKALINE PHOSPHATASE 57 IU/L (42-121); ALT ALANINE AMINOTRANSFERASE 29 IU/L (10-60); AST ASPARTATE AMINOTRANSFERASE 42 IU/L (10-42); BILIRUBIN,TOTAL 1.3 mg/dL (0.2-1.0); BUN - BLOOD UREA NITROGEN 21 mg/dL (6-20); CARBON DIOXIDE - CO2 22 mmol/L (21-32); CHLORIDE 109 mmol/L (101-111); CREATININE 0.8 mg/dL (0.6-1.3); GFR - MDRD 96 (>89); GLUCOSE 105 mg/dL (74-104); POTASSIUM 3.4 mmol/L (3.5-4.5); SODIUM 141 mmol/L (135-145)
[2024-04-14 03:32] LABS: LIPASE < 10 U/L (11-82)
[2024-04-14] MEDS: iohexoL-300 100 ML VIAL IVP ONE (04:34)
[2024-04-14 06:01] VITALS: BP 127/78
--- NOTE | 2024-04-14 09:57 | XRAY Report ---
PROCEDURE: Chest 1V INDICATIONS: midepigastric pain TECHNIQUE: One view of the chest was acquired. COMPARISON: Chest x-ray 11/13/2021 FINDINGS: Surgical changes and devices: Sternal wires Lungs and pleura: No pleural effusions or pneumothorax. Minimal appearance of hazy bibasilar opaciti es. Mediastinum: Mediastinal contours appear normal. Heart size is enlarged. Bones and chest wall: No suspicious bony lesions. Overlying soft tissues appear unremarkable. IMPRESSION: Minimal hazy bibasilar opacity suspected to represent atelectasis. The above findings are concordant with preliminary report. Reviewed by: Nataliya Lopez MD on 04/14/2024 9:56 AM PDT Approved by: Nataliya Lopez MD on 04/14/2024 9:56 AM PDT Station ID: [id number]
--- NOTE | 2024-04-14 10:02 | CT Report ---
PROCEDURE: Abdomen/Pelvis W INDICATIONS: midepigastric abd pain, hx retained gallstones CONTRAST: Omni 300, 100mls TECHNIQUE: After the administration of intravenous contrast, a CT scan of the abdomen and pelvis was performed. Images were recorded and evaluated at appropriate window settings. Reformats: coronal and sagittal. F or radiation dose reduction, the following was used: automated exposure control, adjustment of mA and /or kV according to patient size. COMPARISON: CT abdomen pelvis 04/13/2021 FINDINGS: Image quality: Diagnostic. Lower chest: Unremarkable. Liver: No solid mass. Gallbladder: Removed. Biliary tree: Common bile duct measures approximate 9 to 10 mm likely prominent secondary to postchol ecystectomy sequela. No choledocholithiasis. Spleen: No splenomegaly. Pancreas: No pancreatic ductal dilation. Adrenals: No adrenal nodule. Kidneys and ureters: No hydronephrosis. No renal cystic lesion which requires follow up. No solid mas s. Simple bilateral renal cysts. Stomach, bowel and peritoneum: No gastric or small bowel dilation. No abnormal wall thickening. No pa thologic free fluid. Colonic diverticula are present particularly within the left colon. Lymph nodes: No central or retroperitoneal adenopathy. Vessels: No infrarenal aortic aneurysm. Patent portal vein. Moderate SMA narrowing with atherosclerot ic plaquing. PELVIS Reproductive organs: Unremarkable. Bladder: No abnormal wall thickening, accounting for underdistention. Pelvic lymph nodes: No pelvic adenopathy by size criteria. Bones: No aggressive osseous abnormality. Other: No significant ventral or inguinal hernia. IMPRESSION: No acute intra-abdominal or pelvic process. Diverticulosis. No choledocholithiasis. The above findings are concordant with preliminary report. Reviewed by: Nataliya Lopez MD on 04/14/2024 10:00 AM PDT Approved by: Nataliya Lopez MD on 04/14/2024 10:00 AM PDT Station ID: [id number]
== END 2024-04-14 05:55 | disposition home or self-care (01) ==
LOC: EDUNIT# → ED 02:44
DX: R10.13 Epigastric pain (principal); K21.9 Gastro-esophageal reflux disease without esophagitis; I10 Essential (primary) hypertension; E78.00 Pure hypercholesterolemia, unspecified; I25.810 Atherosclerosis of coronary artery bypass graft(s) without angina pectoris; E03.9 Hypothyroidism, unspecified; Z95.1 Presence of aortocoronary bypass graft; Z79.899 Other long term (current) drug therapy
CPT/HCPCS: 36415; 71045; 74177; 80053; 83690; 84484; 85025; 99283; Q9967